=== PATIENT | female | born 1970 | race Caucasian/White ===

== ENCOUNTER 2016-11-28 06:00 | Day surgery (SDC) | payer BC, MEDICARE ==
[~2016-11-28] VITALS: Ht 165.1 cm; Wt 97.5 kg
[~2016-11-28 06:00] MED LIST: LASIX40 MG PO; NEPHRO-VITE RX1 TAB PO; NORVASC5 MG PO; PRAVACHOL40 MG PO; PRINIVIL20 MG PO; RENVELA800 MG PO; SODIUM BICARBO650 MG PO
[2016-11-28 06:45] LABS: BASOPHILS 0.5 % (0.0-2.0); EOSINOPHILS 1.3 % (0-7); HEMATOCRIT 29.3 % (36.0-48.0); HEMOGLOBIN 8.8 g/dL (12-16); IMMATURE GRANULOCYTES 0.2 % (0-5); LYMPHOCYTES 17.2 % (15-50); MCH 26.8 pg (26.0-34.0); MCV 89.3 fL (80.0-100.0); MONOCYTES 7.5 % (2-11); NEUTROPHILS 73.3 % (40-80); PLATELET COUNT 337 10x3/uL (130-400); RBC 3.28 10x6/uL (4.00-5.40); RDW 15.5 % (11.5-14.5); WBC 8.7 10x3/uL (4.8-10.8)
[2016-11-28 06:57] LABS: INR 1.12 (0.85-1.17); PROTIME 14.3 SECONDS (11.6-15.0)
[2016-11-28 07:01] LABS: CALCIUM 8.1 mg/dL (8.5-10.1); CARBON DIOXIDE 27.3 mmol/L (21.0-32.0); CREATININE - SERUM 4.4 mg/dL (0.6-1.3); POTASSIUM - SERUM 3.3 mmol/L (3.5-5.1)
[2016-11-28 08:21] VITALS: Ht 165.1 cm; Wt 97.5 kg
--- NOTE | 2016-11-28 08:58 | NUR ---
8792 JOSE MCKEON APN PAGED TO GIVE LAB RESULTS, RETURNED CALL, RESULTS GIVEN, ORDERS RECEIVED, CLEARED FOR SURGERY
[2016-11-28] MEDS ORDERED: HYDROCODON-ACE1 EAC7 PO (13:30)
--- NOTE | 2016-11-28 15:19 | NUR ---
1515 LAB HERE FOR BLOOD DRAW
--- NOTE | 2016-11-28 16:59 | OP ---
PATIENT NAME: BRODIE SINGH MEDICAL RECORD: [id number] :72 LOCATION:[facility] ADMISSION DATE: SURGEON: LINDA MILLER MD DATE OF OPERATION: 11/28/2016 PREOPERATIVE DIAGNOSIS: End-stage renal disease with dependence upon hemodialysis, now catheter dependent. POSTOPERATIVE DIAGNOSIS: End-stage renal disease with dependence upon hemodialysis, now catheter dependent. HISTORY OF PRESENT ILLNESS: She has a nonfunctioning peritoneal dialysis catheter and at present a right internal jugular tunneled dialysis catheter HemoSplit. She has had a failed access brachiocephalic AV fistula in the left arm. She has not had a successful hemodialysis access since that. She is brought to the OR today as an outpatient with plans to remove the peritoneal dialysis catheter and implant a new PTFE AV graft in her left arm. DESCRIPTION OF PROCEDURE: With the patient under general anesthesia, she was placed in supine position, prepped and draped in sterile manner. The arm was examined with ultrasound and I did not see a really good vein in the forearm for a forearm loop and went on to do an upper arm axillo-axillary loop Propaten PTFE graft. A transverse axillary incision was made and the axillary vein and axillary artery were exposed and controlled with Silastic loops. These vessels were normal in caliber. The axillary vein was only about a centimeter in diameter. The artery certainly exhibited no signs of atherosclerosis. The vessels were controlled with Silastic loops. I had planned to use a 6 mm straight Roggen Propaten PTFE graft, but we did not have one in stock. Fortunately, we did have a 4-7 taper 80 cm long standard wall thickness Propaten PTFE graft and I used that. Portion of the 4-mm end was trimmed away and the graft beveled and the artery was opened, flushed proximally and distally with heparinized saline and then the graft anastomosed to it with continuous running 6-0 Prolene. A counter incision was made just above the antecubital space and the graft was then pulled through a subcutaneous tunnel immediately beneath the skin and brought back up to the axillary wound. There, the graft was carefully shortened and beveled and anastomosed end-to-side to the axillary vein with local heparin flush as the only anticoagulant. Several times during the procedure, the graft itself was aspirated and flushed with heparinized saline. When the last anastomosis was completed and the occluding loops and clamps were released, excellent flow was immediately established in the new graft and bleeding at the suture lines was minimal and easily controlled with some fibrillar hemostatic material and dry gauze and gentle pressure. When hemostasis was adequate, the wounds were irrigated with saline and then infiltrated and irrigated with 0.25% Marcaine with epinephrine. They were closed with interrupted inverted 3-0 Vicryl and then running intracuticular 4-0 Monocryl and Dermabond glue. The incisions were dressed with Maxorb Ag, Tegaderm and Cavilon skin prep. Repeat Doppler examination confirmed good distal brachial artery pulsatile Doppler flow and radial and ulnar artery pulsatile Doppler flow at the wrist. The patient's abdomen was exposed and it had been prepped and draped at the beginning of the procedure. A transverse incision was made over the palpable subcutaneous catheter and the deeper of the 2 Dacron felt cuffs was exposed and found to be in the subcutaneous tissue, immediately anterior to the anterior rectus sheath. It was freed from the surrounding tissue and the dialysis catheter then pulled from the abdomen. Its tip was sent for culture and then dissection superficially exposed the OPERATIVE REPORT [id number] BRODIE SINGH K superficial of the 2 Dacron felt cuffs. This was just immediately beneath the skin and actually there was a fistula between the skin adjacent to the true exit site and the Dacron felt cuff. There was no purulent material per se. Cultures were taken of this area. The catheter was removed and I then excised the exit site and fistulous opening as an oblique ellipse of skin and subcutaneous tissues. The wounds were irrigated with saline and then infiltrated with Marcaine with epinephrine and then the oblique incision at the exit site wound was closed with interrupted simple 3-0 Vicryl sutures. The larger incision was closed with a few interrupted inverted 3-0 Vicryl and then running intracuticular 4-0 Monocryl and the intracuticularly closed incision was sealed with Dermabond glue. Both sites were dressed with Maxorb Ag, Tegaderm and Cavilon skin prep. The patient then awakened and taken to the recovery room. Blood loss during the procedure was trivial and was unreplaced and all sponges, instruments, and needles were accounted for. No drain was used and no surgical specimen was submitted for histopathology, but cultures of the abdominal wall exit site and of the peritoneal dialysis catheter tip were requested. PLAN: The patient will go home today and continue her home diet and all of her same medications. She is given a prescription for [place] 5/325, #30 one p.o. q.4 hours p.r.n. pain and she will return to see me in my office next week. She will continue her renal diet, etc. She can wash over the waterproof plastic dressings as desired with soap and water and otherwise leave the dressings intact and I will remove them in the office next week. I expect that the new AV graft can be used for hemodialysis first in about 2 weeks. Hopefully, it will work fine and the tunneled dialysis catheter can be removed as quickly as possible after that. TRANSINT:[id number] Voice Confirmation ID: [id number] DOCUMENT ID: [id number] LINDA MILLER MD at 1659 CC: AKSHAT VILLASEÑOR MD [id number] DICTATION DATE: 11/28/16 1344 GUEST SERVICES DIRECTOR: 11/28/16 1429 [facility] 11/28/16 [id number] [place] [address]
== END 2016-11-28 16:20 | disposition home or self-care (01) ==
LOC: D.OPS 06:00
PROVIDERS: Internal Medicine Nephrology
DX: N18.6 End stage renal disease (principal)

== ENCOUNTER 2020-04-16 19:04 | Inpatient (IN) | payer MEDICARE, BC ==
[~2020-04-16] VITALS: Ht 165.1 cm; Wt 87.5 kg
--- NOTE | ~2020-04-16 | OP ---
PATIENT NAME: BRODIE CAGE MEDICAL RECORD: [id number] :72 LOCATION:D. D.2101 ADMISSION DATE:04/17/20 SURGEON: LINDA MILLER MD DATE OF OPERATION: 04/18/2020 PREOPERATIVE DIAGNOSES: Thrombosed dialysis access and end-stage renal disease and dependence on hemodialysis. POSTOPERATIVE DIAGNOSES: Thrombosed dialysis access and end-stage renal disease and dependence on hemodialysis. OPERATION PERFORMED: Ultrasound and fluoroscopic-guided insertion of a right internal jugular HemoSplit 19 cm tunneled dialysis catheter. SURGEON: Linda Miller MD ANESTHESIA: General with LMA per DIVING JUDGE. PREOPERATIVE NOTE: Ms. Cage who yesterday underwent a percutaneous mechanical thrombolysis, angioplasty and stenting procedure of her left arm AV graft. Clotted graft yesterday before dialysis. She is returned to the OR today to implant a hemodialysis catheter. She has had a prior catheter on the right in the internal jugular vein, but we will try again hopefully, that vein is still patent. DESCRIPTION OF PROCEDURE: Under anesthesia in supine position, the patient was prepped and draped in a sterile manner. She was examined with ultrasound and I found that the right internal jugular vein was patent at least at the level of the clavicular head and fully compressible. I made a small incision there and inserted a micropuncture needle under ultrasound guidance with continuous real-time ultrasound guidance into the internal jugular vein and then advanced a microwire under fluoroscopy into the superior vena cava. I then inserted a small catheter and then performed a wire exchange and then passed serial dilators under fluoroscopy and lastly inserting a peel-away dilator. I chose a 19-cm catheter. This was placed through a small incision beneath the clavicle and a subcutaneous tunnel up to the cervical incision where it was inserted through the peel-away sheath and the sheath removed. Fluoroscopy demonstrated satisfactory placement of the catheter in the right atrium with good orientation. The catheter lumens were accessed and aspirated, free return of blood from each demonstrated. Both lumens were then flushed with saline and then heparin locked, clamped and capped. The catheter was sutured to the skin at the entry site with 2-0 Prolene and the cervical incision closed with interrupted inverted 3-0 Vicryl and Dermabond glue. It was dressed with Maxorb Ag, Tegaderm, and Cavilon skin prep. A chlorhexidine Biopatch was applied to the catheter entry site and a standard CVL adhesive plastic dressing over that. The patient was then awakened and taken to the recovery room. Blood loss during the operation was essentially none. Sponges, instruments, and needles accounted for. No surgical specimen submitted for histopathology. PLAN: The patient should have dialysis today and then be able to go home. I plan to bring her back to the hospital in the next couple of weeks for a thrombectomy open revision procedure of her left arm graft. I will plan to implant a new Artegraft basically around the old one using the present stented venous outflow tract and a new arterial anastomosis. The old PTFE graft was essentially worn out and she has a persistent stenosis or problem at the OPERATIVE REPORT [id number] BRODIE CAGE arterial anastomosis. Note, the old graft was a 4-7 taper PTFE graft and her new graft will not be a taper. TRANSINT:[id number] Voice Confirmation ID: [id number] DOCUMENT ID: [id number] cc: [facility] LINDA Nielson MD CC: Dominic GONZALEZ DIVINE DO [id number] DICTATION DATE: 04/18/20 1021 LEATHER PIECE INSPECTOR: 04/18/20 1143 DIS IN 04/18/20 [facility] [address] [place] [address]
--- NOTE | ~2020-04-16 | OP ---
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 Additionally, end-stage renal disease and dependence on renal dialysis. OPERATION PERFORMED: Percutaneous access with a fistulogram and AngioJet mechanical thrombolysis and balloon angioplasty of thrombosed AV graft and placement of a 10 mm x 5 cm Viabahn stent in the axillary vein at the proximal end of previously placed stent and balloon angioplasty of an arterial anastomotic stenosis and selective left brachial artery arteriogram. SURGEON: Linda Miller MD ANESTHESIA: General with LMA per SUPERVISOR FINISHING ROOM. PREOPERATIVE NOTE: Ms. Cage is a very nice 49-year-old white female patient from [place]. She has end-stage renal disease and is on hemodialysis with a left arm AV graft, which I implanted back in 2017. This was a tapered 4-7 mm PTFE graft placed in a loop configuration between the proximal brachial artery and proximal basilic vein. She had very little problems with this until recently. She was able to stop Plavix, which she was on following coronary artery intervention and she began to have episodes of graft thrombosis. She has now had about 5-6 declots done on as many weeks and has clotted her graft yet again. She was brought to the operating room at this time with expectation that she will need a HemoSplit catheter and a new access or major revision of the existing access. I will do another percutaneous fistulogram with declot and arteriogram to determine the anatomy and see for myself what may be the cause and determine what might be the best remedy for a problem. 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 DESCRIPTION OF PROCEDURE: Under general anesthesia in supine position, the patient was prepped and draped in sterile manner. I examined her with ultrasound and noted the long stent in the venous anastomosis and what appeared to be clips or metallic density near the arterial anastomosis. I accessed the graft twice percutaneously with placement of 7-Lebanese introducers overlapping in the region of the apex of the loop and I passed a guidewire proximally through the venous outflow and over that used the AngioJet to lyse and remove thrombus from the venous half of the graft and anastomosis. I then used an 8-mm angioplasty balloon to dilate the venous outflow tract and the venous limb of PTFE and subsequently used a 10-mm balloon for the same thing. There were proved to be about a 1 inch long very elastic stenosis of about 80% diameter reduction in the vein immediately proximal to the existing axillary vein stent. This did not respond sufficiently to balloon dilatation and it proved necessary to stent this and I did that with a 10-mm diameter x 5 cm Viabahn stent. This required the use of an 11-Lebanese introducer. The patient was systemically heparinized with 5000 units of heparin systemically of course. The graft was then studied with a contrast injection and a considerable roughening of the body of the graft was still present and this was treated by repeated applications of the angioplasty balloon held at 10 atmospheres for 60 seconds and subsequent contrast injection looked better at least at a better angiographic appearance. The arterial limb of the graft was then cleared in a similar manner. The guidewire was passed proximally across the arterial anastomosis and up into the OPERATIVE REPORT [id number] BRODIE CAGE K brachial and then axillary artery. Contrast was injected into the proximal brachial artery and a selective arteriogram performed, which revealed a stenosis at the arterial anastomosis and then good runoff into the forearm and hand without evidence of any embolism or other problems. The stenosis may be a small dissection or flap created by recent angioplasties. It did have that appearance and I noted that the arterial anastomosis itself was extremely tight around the 5-Lebanese glide catheter. I then used a 6-mm angioplasty balloon to dilate the arterial anastomosis and the brachial artery just proximal to it. There was a stenosis there or at least there was a lumen of about 4-mm, which goes along with the graft having been 4-mm PTFE graft at the arterial anastomosis. I used a larger angioplasty balloon into lyse and compact thrombus in the arterial limb. This was done with overlapping inflations and use of the AngioJet. Eventually flow was restored in the AV graft and the subsequent angiographic appearance was quite satisfying. The introducer sheaths were removed and hemostasis obtained with a period of direct pressure and 4-0 Prolene [id number] sutures. The sites were dressed with Avitene Ultrafoam, Tegaderm, and Cavilon skin prep. The patient was awakened and taken to the recovery room and there noted to have excellent audible bruit and thrill palpable. Note, she did have a color flow duplex Doppler repeated in the operating room at the completion of this procedure and I noted a continuous periodic pulsatile flow throughout the graft. Blood loss during the operation was about 25 cc, unreplaced. Sponges, instruments, and needles were accounted for. No drain was used and no surgical specimen was submitted for histopathology. PLAN: Obviously, the patient will need to have dialysis as soon as possible today. If her graft thrombosis or if she is not able to get a good hemodialysis treatment today, then I will plan to return her to the operating room tomorrow for implantation of a HemoSplit and she could then have dialysis and return subsequently for revision of her access. I believe though that she will be able to have dialysis today and then should be able to go home. I plan for her to stay on Plavix 75 mg daily and Eliquis 2.5 mg b.i.d. receiving the first dose of Eliquis in the recovery room now. When her access thrombosis next, please refer her to OPC for placement of a tunneled dialysis catheter and not for a repeat angiogram and declot procedure. I would like to have her referred back to me then at that point, so that I can perform a revision or reoperation. I think I would try to implant a new Artegraft loop in the left arm using the same venous outflow, but moving the arterial anastomosis proximally on the artery and having a larger lumen for the arterial anastomosis and I also would probably go ahead and stent the area of stenosis in the brachial artery at the old PTFE graft anastomotic site. This could be extended from below as well as above. TRANSINT:[id number] Voice Confirmation ID: [id number] DOCUMENT ID: [id number] cc: [facility] OPERATIVE REPORT [id number] BRODIE CAGE JAMES MD CC: Dominic GONZALEZ DIVINE DO [id number] DICTATION DATE: 04/17/20 1137 ARTIST'S MANAGER: 04/17/20 1358 DIS IN 04/18/20 [facility] [address] [place] [address]
--- NOTE | 2020-04-16 19:00 | NUR ---
PT DIRECT ADMIT FROM RENAL CLINIC, PT IN ROOM, AAO X 3, RESP EVEN AND UNLABORED. NO DISTRESS NOTED. CL IN REACH, SR UP X 2.
[~2020-04-16 19:04] MED LIST changes: +HYDROCODON-ACE1 EAC7 PO
[2020-04-16] MEDS ORDERED: BAYER CHEWABLE81 MG PO (19:41)
[2020-04-16] MEDS ORDERED: PLAVIX75 MG PO (19:41)
[2020-04-16] MEDS ORDERED: SENSIPAR30 MG PO (19:45)
[2020-04-16 20:32] VITALS: BP 177/93
[2020-04-16 22:09] LABS: BASOPHILS 0.3 % (0-2); EOSINOPHILS 1.2 % (0-7); HEMOGLOBIN 10.5 g/dL (12-16); IMMATURE GRANULOCYTES 0.1 % (0-5); LYMPHOCYTES 17.3 % (15-50); MCH 31.3 pg (26.0-34.0); MCHC 31.8 g/dL (31.0-37.0); MCV 98.2 fL (80.0-100.0); MEAN PLATELET VOLUME 10.5 fL (7.4-10.4); MONOCYTES 10.4 % (2-11); NEUTROPHILS 70.7 % (40-80); RBC 3.36 10x6/uL (4.00-5.40); RDW 14.1 % (11.5-14.5); WBC 7.6 10x3/uL (4.8-10.8)
[2020-04-16 22:10] LABS: PLATELET COUNT 171 10x3/uL (130-400)
[2020-04-16 22:17] LABS: ANION GAP 14.3 mmol/L (8-16); CALCIUM 8.7 mg/dL (8.5-10.1); CARBON DIOXIDE 26.4 mmol/L (21.0-32.0); CREATININE - SERUM 8.9 mg/dL (0.6-1.3); POTASSIUM - SERUM 5.7 mmol/L (3.5-5.1)
[2020-04-16 22:18] LABS: PROTIME 13.2 SECONDS (11.6-15.0)
[2020-04-17] VITALS: BP 148/70
[2020-04-17 05:17] VITALS: BP 156/85
--- NOTE | 2020-04-17 07:00 | NUR ---
RECEIVED REPORT. ASSUMED CARE OF PATIENT. PATIENT RESTING IN BED WITH EYES OPEN. NO DISTRESS. DENIES NEEDS. CALL LIGHT WITHIN REACH. AWAITING SURGERY.
--- NOTE | 2020-04-17 07:24 | NUR ---
RECEIVED CALL TO PREOP PATIENT, PATIENT HAS NO ORDERS, NO ANSWER IN SURGERY OR RECOVERY.
--- NOTE | 2020-04-17 07:27 | NUR ---
STICKER HAND NOTIFIED OF NO ANSWER IN OR OR RECOVERY TO OBTAIN PREOP ORDERS. INSTRUCTED TO KEEP CALLING, NO ADDITIONAL ORDERS/INSIGHT RECEIVED.
--- NOTE | 2020-04-17 07:59 | NUR ---
SPOKE WITH NANCY IN SURGERY TO NOTIFY OF NO ORDERS FOR PREOP MEDS TO ADMINISTER. NANCY TO FIND ANESTHESIA AND CALL BACK WITH ORDERS
--- NOTE | 2020-04-17 08:12 | NUR ---
PREOP MEDS ADMINISTERED AND PATIENT AWAITING SURGERY TEAM.
[2020-04-17 09:49] VITALS: BP 153/74
--- NOTE | 2020-04-17 11:58 | NUR ---
PATIENT RETURNED TO UNIT S/P FISTULOGRAM. PATIENT ALERT/ORIENTED. BP 137/74. NO DISTRESS. DENIES PAIN. WAITING FOR DIALYSIS AT THIS TIME. CALL LIGHT WITHIN REACH.
--- NOTE | 2020-04-17 13:00 | NUR ---
SPOKE WITH JOSE MCKEON, RENAL ESCAPEMENT MAKER AND RECEIVED OKAY TO DISCHARGE FROM RENAL STANDPOINT IF PATIENT TOLERATES DIALYSIS TODAY.
--- NOTE | 2020-04-17 14:52 | NUR ---
RESTING WELL. FRESH ICEWATER PROVIDED. CALL LIGHT WITHIN REACH. NO DISTRESS.
--- NOTE | 2020-04-17 15:01 | NUR ---
HOME MEDICATIONS RESTARTED PER NURSING MESSAGE FROM .
[2020-04-17 18:45] VITALS: BP 132/68
--- NOTE | 2020-04-17 19:18 | NUR ---
RECEIVED REPORT, WILL ASSUME CARE OF PT, DENIES ANY NEEDS AT THIS TIME, BED IS LOW, SRX2, CALL LIGHT IN REACH, WILL CONTINUE PLAN OF CARE
[2020-04-17 20:00] VITALS: BP 133/61
[2020-04-17 21:26] LABS: BASOPHILS 0.3 % (0-2); EOSINOPHILS 0.9 % (0-7); HEMATOCRIT 27.4 % (36.0-48.0); HEMOGLOBIN 8.5 g/dL (12-16); IMMATURE GRANULOCYTES 0.1 % (0-5); LYMPHOCYTES 12.8 % (15-50); MCH 30.7 pg (26.0-34.0); MCV 98.9 fL (80.0-100.0); MEAN PLATELET VOLUME 10.5 fL (7.4-10.4); NEUTROPHILS 77.9 % (40-80); PLATELET COUNT 178 10x3/uL (130-400); RBC 2.77 10x6/uL (4.00-5.40); WBC 7.9 10x3/uL (4.8-10.8)
[2020-04-17 21:36] LABS: ANION GAP 16.4 mmol/L (8-16); CALCIUM 8.1 mg/dL (8.5-10.1); CARBON DIOXIDE 27.6 mmol/L (21.0-32.0); CREATININE - SERUM 10.3 mg/dL (0.6-1.3)
[2020-04-18] VITALS: BP 133/61
--- NOTE | 2020-04-18 01:47 | NUR ---
I have reviewed this patient and I concur with the Shift Assessment completed by the Licensed Practical Nurse today this shift.
[2020-04-18 03:52] LABS: ANION GAP 16.6 mmol/L (8-16); CALCIUM 8.3 mg/dL (8.5-10.1); CARBON DIOXIDE 27.1 mmol/L (21.0-32.0); CREATININE - SERUM 10.6 mg/dL (0.6-1.3); POTASSIUM - SERUM 4.7 mmol/L (3.5-5.1)
[2020-04-18 04:00] VITALS: BP 159/82
--- NOTE | 2020-04-18 05:33 | NUR ---
CALL LAB RESULTS TO
[2020-04-18 05:52] VITALS: BP 133/61; Ht 165.1 cm; Wt 87.5 kg
--- NOTE | 2020-04-18 07:00 | NUR ---
RECEIVED REPORT. ASSUMED CARE OF PATIENT. RESTING IN BED WITH EYES OPEN. PATIENT IS AWAITING SURGERY THIS AM. NO DISTRESS. CALL LIGHT WITHIN REACH.
--- NOTE | 2020-04-18 08:55 | NUR ---
PATIENT LEFT FOR OR VIA BED AT THIS TIME FOR HEMOSPLIT PLACEMENT. NO DISTRESS UPON LEAVING UNIT.
--- NOTE | 2020-04-18 10:26 | NUR ---
1025 DR MILLER AT BEDSIDE. PLACING STITCH IN HEMASPLIT SITE. SITE REDRESSED BY OR TECH.
--- NOTE | 2020-04-18 10:37 | NUR ---
REPORT RECEIVED FROM RECOVERY. PATIENT BACK TO UNIT SOON WITH RIGHT CHEST HEMOSPLIT PLACEMENT.
--- NOTE | 2020-04-18 10:59 | NUR ---
RECEIVED BACK FROM SURGERY, ALERT/ORIENTED. BP 126/64, 77, 18, RA 100%. PATIENT IS STILL NPO UNTIL AFTER DIALYSIS TO ENSURE HEMOSPLIT IS PATENT AND SHE DOES NOT NEED TO GO BACK TO THE OR. LAB AT BEDSIDE NOW.
[2020-04-18 11:09] LABS: BASOPHILS 0.3 % (0-2); EOSINOPHILS 0.9 % (0-7); HEMATOCRIT 27.7 % (36.0-48.0); HEMOGLOBIN 8.7 g/dL (12-16); IMMATURE GRANULOCYTES 0.2 % (0-5); LYMPHOCYTES 17.1 % (15-50); MCH 30.7 pg (26.0-34.0); MCHC 31.4 g/dL (31.0-37.0); MCV 97.9 fL (80.0-100.0); MEAN PLATELET VOLUME 10.3 fL (7.4-10.4); MONOCYTES 7.2 % (2-11); NEUTROPHILS 74.3 % (40-80); PLATELET COUNT 171 10x3/uL (130-400); RBC 2.83 10x6/uL (4.00-5.40); WBC 6.6 10x3/uL (4.8-10.8)
[2020-04-18 11:17] LABS: ANION GAP 19.8 mmol/L (8-16); CALCIUM 8.5 mg/dL (8.5-10.1); CARBON DIOXIDE 25.2 mmol/L (21.0-32.0); CREATININE - SERUM 11.3 mg/dL (0.6-1.3)
--- NOTE | 2020-04-18 11:53 | NUR ---
CONTINUE NPO STATUS WHILE AWAITING DIALYSIS. NO DISTRESS.
--- NOTE | 2020-04-18 13:31 | NUR ---
PATIENT IS IN DIALYIS AND HEMOSPLIT IS WORKING GREAT PER DIALYSIS NURSE OLU.
--- NOTE | 2020-04-18 15:30 | NUR ---
22 GAUGE IV REMOVED FROM RIGHT FOREARM. CATHETER TIP INTACT. NO BLEEDING FROM SITE. 2X2 GAUZE APPLIED AND SECURED WITH BANDAID. TOELRATED IV REMOVAL WELL. PATIENT IS BEING DISCHARGED TO HOME.
--- NOTE | 2020-04-18 15:40 | NUR ---
DISCHARGE INSTRUCTIONS PROVIDED. PATIENT VERBALZIED UNDERSTANDING OF ALL INSTRUCTIONS PROVIDED. NO DISTRESS.
--- NOTE | 2020-04-18 16:11 | NUR ---
PATIENT LEFT UNIT VIA WHEELCHAIR WITH ALL PERSONAL BELONGINGS. PATIENT DISCHARGED TO HOME IN STABLE CONDITION WITH HER DAUGHTER. NO DISTRESS UPON LEAVING UNIT.
--- NOTE | 2020-04-18 16:54 | MORECARE ---
CASE MANAGEMENT DISCHARGE SUMMARY PATIENT: BRODIE SINGH UNIT: [id number] ADM DATE: 04/17/20 AGE: 49 : 72 SEX: F ROOM/BED: D.2102 AUTHOR: BRYANT HERNÁNDEZ PHYSICIAN: REFERRING PHYSICIAN: ANTHONY ESPARZA DO DATE OF SERVICE: 04/18/20 Discharge Plan Patient Name: BRODIE SINGH Facility: [facility]:[place] : 1970 Planned Disposition: Anticipated Discharge Date: Discharge Date: 04/18/2020 Expected LOS: Initial Reviewer: [email or web address] Initial Review Date: 04/16/2020 Generated: 04/18/20 5:54 pm Patient Name: BRODIE SINGH Page [id number] at 1654 All edits/amendments must be made on the electronic document DICTATION DATE: 04/18/201653 POWER PLANT MECHANIC: HEENA 04/18/201653 RPT#: [id number] DC DATE:04/18/20 STATUS: DIS IN [facility] [address] [place] [address] END OF REPORT
--- NOTE | 2020-04-18 17:13 | MORECARE ---
CASE MANAGEMENT DISCHARGE SUMMARY PATIENT: BRODIE SINGH UNIT: [id number] ADM DATE: 04/17/20 AGE: 49 : 72 SEX: F ROOM/BED: D.6447 AUTHOR: BRYANT HERNÁNDEZ PHYSICIAN: REFERRING PHYSICIAN: ANTHONY ESPARZA DO DATE OF SERVICE: 04/18/20 Discharge Plan Patient Name: BRODIE SINGH Facility: [facility]:[place] : 1970 Planned Disposition: Anticipated Discharge Date: Discharge Date: 04/18/2020 Expected LOS: Initial Reviewer: [email or web address] Initial Review Date: 04/16/2020 Generated: 04/18/20 6:12 pm Comments DCP- Discharge Planning Updated by [email or web address]: Haydee Mai on 04/18/20 4:[address] Patient Name: BRODIE SINGH Admission Status: Elective Accout number: [id number] Admission Date: 04-17-2020 : 1970 Admission Diagnosis: Attending: PALMA Current LOS: 1 Anticipated DC Date: Planned Disposition: Primary Insurance: MEDICARE A & B Discharge Planning Comments: CM met with patient to complete initial dc planning assessment. CM educated patient on the CM role and verbal consent given by patient to complete assessment. Patient lives at home with family. Patient is independent. At discharge patient plans to return home and feels this is a safe discharge. CM discussed availability of home health, rehab services, and medical equipment. Patient will have family to transport home. Patient denied known discharge needs at this time. CM will continue to follow and will assist as needed with dc plans/needs. HUMPHRIES signed 04/17/20 @ 1800 Office Automation Technician: Haydee Mai Coverage Notice Reviewer: [email or web address] - Haydee Mai Notice Issued Date-Time: 04/17/2020 18:00 Notice Type: Medicare Outpatient Observation Notice Notice Delivered To: Patient Relationship to Patient: Self Experimental Worker Name: Delivery Method: HAND - Hand Delivered Britney Days: Prior Verbal Notification: Recipient Understood Notice: Yes Recipient Signature: Yes Med Rec Note Co-signed by Attending: Coverage Notice Comment: Last DP export: 04/18/20 3:54 p Patient Name: BRODIE SINGH Page [phone] at 1713 All edits/amendments must be made on the electronic document DICTATION DATE: 04/18/201712 DIGITAL ART DIRECTOR: HEENA 04/18/201712 RPT#: [id number] DC DATE:04/18/20 STATUS: DIS IN [facility] [address] [place] [address] END OF REPORT
--- NOTE | 2020-04-18 17:20 | MORECARE ---
CASE MANAGEMENT DISCHARGE SUMMARY PATIENT: BRODIE SINGH UNIT: [id number] ADM DATE: 04/17/20 AGE: 49 : 72 SEX: F ROOM/BED: D.3091 AUTHOR: BETTY,DOC PHYSICIAN: REFERRING PHYSICIAN: ANTHONY ESPARZA DO DATE OF SERVICE: 04/18/20 Discharge Plan Patient Name: BRODIE SINGH Facility: [facility]:[place] : 1970 Planned Disposition: Anticipated Discharge Date: Discharge Date: 04/18/2020 Expected LOS: Initial Reviewer: [email or web address] Initial Review Date: 04/16/2020 Generated: 04/18/20 6:20 pm Comments DCP- Discharge Planning Updated by [email or web address]: Haydee Mai on 04/18/20 4:[address] LATE ENTRY 04/17/20 Patient Name: BRODIE SINGH Admission Status: Elective Accout number: [id number] Admission Date: 04-17-2020 : 1970 Admission Diagnosis: Attending: PALMA Current LOS: 1 Anticipated DC Date: Planned Disposition: Primary Insurance: MEDICARE A & B Discharge Planning Comments: CM met with patient to complete initial dc planning assessment. CM educated patient on the CM role and verbal consent given by patient to complete assessment. Patient lives at home with family. Patient is independent. At discharge patient plans to return home and feels this is a safe discharge. CM discussed availability of home health, rehab services, and medical equipment. Patient will have family to transport home. Patient denied known discharge needs at this time. CM will continue to follow and will assist as needed with dc plans/needs. HUMPHRIES signed 04/17/20 @ 1800 Ecologist Technician: Haydee Mai DCPIA - Discharge Planning Initial Assessment Updated by [email or web address]: Haydee Mai on 04/18/20 5:13 pm * Is the patient Alert and Oriented? Yes * How many steps to enter\exit or inside your home? * PCP KASI * Preadmission Environment Home with Family * ADLs Independent * Equipment None * List name and contact numbers for known caregivers / representatives who currently or will assist patient after discharge: ELIZABETH KATZ - MOTHER- [phone] * Verbal permission to speak to the caregivers and representatives has been obtained from the patient. N/A * Community resources currently utilized Other * Please name any agencies selected above. HD - [facility] * Additional services required to return to the preadmission environment? No * Can the patient safely return to the preadmission environment? Yes * Has this patient been hospitalized within the prior 30 days at any hospital? No Coverage Notice Reviewer: [email or web address] Leonard Mai Notice Issued Date-Time: 04/17/2020 18:00 Notice Type: Medicare Outpatient Observation Notice Notice Delivered To: Patient Relationship to Patient: Self Power Plant Technician Name: Delivery Method: HAND - Hand Delivered Britney Days: Prior Verbal Notification: Recipient Understood Notice: Yes Recipient Signature: Yes Med Rec Note Co-signed by Attending: Coverage Notice Comment: Last DP export: 04/18/20 4:13 p Patient Name: BRODIE SINGH Page 22517 at 1720 All edits/amendments must be made on the electronic document DICTATION DATE: 04/18/201719 ICT DEVELOPMENT MANAGER: HEENA 04/18/201719 RPT#: [id number] DC DATE:04/18/20 STATUS: DIS IN [facility] [address] [place] [address] END OF REPORT
== END 2020-04-18 16:14 | disposition home or self-care (01) | DRG 252 ==
LOC: D.M2 19:04 → OBSVTIME 19:11 → D.M2 04-17 20:06
PROVIDERS: Surgery; ADMIT Internal Medicine; ATTEND Internal Medicine
PROC: 05783DZ Dilation of Left Axillary Vein with Intraluminal Device, Percutaneous Approach (ICD-10-PCS; 2020-04-17)
PROC: 05WY3KZ Revision of Nonautologous Tissue Substitute in Upper Vein, Percutaneous Approach (ICD-10-PCS; principal; 2020-04-17 08:00)
PROC: 05HM33Z Insertion of Infusion Device into Right Internal Jugular Vein, Percutaneous Approach (ICD-10-PCS; 2020-04-18)
PROC: B5131ZA Fluoroscopy of Right Jugular Veins using Low Osmolar Contrast, Guidance (ICD-10-PCS; 2020-04-18)
DX: T82.868A Thrombosis due to vascular prosthetic devices, implants and grafts, initial encounter (principal); N18.6 End stage renal disease; I12.0 Hypertensive chronic kidney disease with stage 5 chronic kidney disease or end stage renal disease; Y83.9 Surgical procedure, unspecified as the cause of abnormal reaction of the patient, or of later complication, without mention of misadventure at the time of the procedure; I25.10 Atherosclerotic heart disease of native coronary artery without angina pectoris; E87.5 Hyperkalemia; D63.1 Anemia in chronic kidney disease

== ENCOUNTER 2020-05-25 06:20 | Day surgery (SDC) | payer MEDICARE, BC ==
[~2020-05-25] VITALS: Ht 165.1 cm; Wt 86.2 kg
--- NOTE | ~2020-05-25 | OP ---
PATIENT NAME: BRODIE CAGE MEDICAL RECORD: [id number] :[birth year] LOCATION:[facility] ADMISSION DATE: SURGEON: LINDA MILLER MD DATE OF OPERATION: 05/25/2020 REFERRING PHYSICIAN: Dr. Gonzalez. DIAGNOSES: End-stage renal disease and dependence on hemodialysis, and thrombosed right upper extremity arteriovenous graft. OPERATION PERFORMED: Fistulogram with mechanical thrombolysis and angioplasty of an 80% in-stent axillary vein stenosis with 0 residual and implantation of a new Acuseal loop jump graft around the previous PTFE AV graft with end-to-end anastomosis to the stented PTFE graft in the axilla and end-to-end to the PTFE arterial limb as well. SURGEON: Linda Miller MD ANESTHESIA: General per ANIMAL HUSBANDRY TEACHER. Additionally, the operation included selective left brachial artery arteriogram. PREOPERATIVE NOTE: Ms. Cage is a ravinder 49-year-old white female patient from [place]. She has end-stage renal disease and is on chronic hemodialysis. She has most recently been dialyzing with a left upper extremity PTFE loop graft between the axillary vein and a proximal brachial artery. She has had multiple overlapping stents placed in the venous outflow and in the axillary vein up to almost to the junction with the cephalic arch. Her graft is thrombosed and she is brought to the OR to perform an attempted salvage. DESCRIPTION OF PROCEDURE: With the patient underwent general endotracheal anesthesia, prepped and draped in sterile manner. The right arm was abducted, a longitudinal incision was made in the upper arm to expose the arterial and venous limbs of the loop graft. An introducer sheath was inserted through the graft into the venous outflow and contrast injections demonstrated an 80% stenosis in-stent in the axillary vein. This was successfully treated by balloon angioplasty. Thrombus in this portion of the vein was lysed and aspirated with AngioJet. The patient was systemically heparinized. The arterial limb was then cannulated and a guidewire and catheter passed into the proximal brachial artery and up into the distal axillary artery. Contrast injection was then done. This demonstrated no evidence of embolus or clot in the brachial artery or radial or ulnar arteries to the wrist. The arterial anastomosis was not stenotic nor was there any JA stenosis. I then chose a new Acuseal graft and placed it in a very superficial subcutaneous tunnel outside the existing tunneled PTFE graft. The venous end was anastomosed end-to-end to the stented PTFE with running 6-0 Prolene and the graft and the stent flushed thoroughly with heparinized saline. The arterial end was handled in a similar manner with an end-to-end anastomosis, Acuseal to PTFE with 6-0 Prolene. The suture lines were treated with BioGlue and with release of the occluding clamps, excellent flow developed in the new AV graft and the suture lines were all hemostatic. The wound was irrigated with Ancef and gentamicin solution. A single counter incision had been made for implanting the loop. This was infiltrated with 0.25% Marcaine without epinephrine and closed with interrupted inverted 3-0 Vicryl and Dermabond glue. The primary incision was irrigated with antibiotic solution and OPERATIVE REPORT [id number] BRODIE CAGE then infiltrated with 0.25% Marcaine and then closed with interrupted inverted 3-0 Vicryl and then running intracuticular 4-0 Stratafix and Dermabond glue. Both incisions were then dressed with Maxorb Ag, Tegaderm, and Cavilon skin prep. The patient was then awakened from her anesthetic and taken to recovery room. PLAN: I believe the patient can be discharged to home and have dialysis tomorrow in [place] following Acuseal protocol for 2 weeks. She is to come back to [facility] to see me in my office next week. She is to resume her usual doses of Plavix and aspirin tomorrow and also was given a prescription for 25/325 [place] tablets to take 1 p.o. q.4 hours p.r.n. pain. There was no blood loss of any consequence during the procedure. Sponges, instruments, and needles were accounted for. No drain was used and no surgical specimen submitted for histopathology. TRANSINT:[id number] Voice Confirmation ID: [id number] DOCUMENT ID: [id number] LINDA MILLER MD CC: URIEL GONZALEZ [id number] DICTATION DATE: 07/02/20 1314 PARADI OPERATOR: 07/02/20 1449 [facility] 05/25/20 [facility] [address] [place] [address]
[~2020-05-25 06:20] MED LIST changes: +BAYER CHEWABLE81 MG PO; +PLAVIX75 MG PO; +SENSIPAR30 MG PO
[2020-05-25 06:37] LABS: BASOPHILS 0.5 % (0-2); EOSINOPHILS 1.7 % (0-7); HEMATOCRIT 32.6 % (36.0-48.0); HEMOGLOBIN 9.7 g/dL (12-16); IMMATURE GRANULOCYTES 0.4 % (0-5); LYMPHOCYTES 13.4 % (15-50); MCH 30.2 pg (26.0-34.0); MCHC 29.8 g/dL (31.0-37.0); MCV 101.6 fL (80.0-100.0); MEAN PLATELET VOLUME 9.8 fL (7.4-10.4); MONOCYTES 8.1 % (2-11); NEUTROPHILS 75.9 % (40-80); RBC 3.21 10x6/uL (4.00-5.40); RDW 16.2 % (11.5-14.5); WBC 7.7 10x3/uL (4.8-10.8)
[2020-05-25 06:39] LABS: PLATELET COUNT 348 10x3/uL (130-400)
[2020-05-25 06:58] LABS: ANION GAP 13.1 mmol/L (8-16); CALCIUM 9.1 mg/dL (8.5-10.1); CARBON DIOXIDE 30.1 mmol/L (21.0-32.0); CREATININE - SERUM 5.2 mg/dL (0.6-1.3); POTASSIUM - SERUM 4.2 mmol/L (3.5-5.1)
[2020-05-25 07:01] LABS: INR 0.97 (0.85-1.17); PROTIME 12.8 SECONDS (11.6-15.0)
[2020-05-25] MEDS ORDERED: FOLATE0.4 MG PO (08:57)
[2020-05-25 09:03] VITALS: Ht 165.1 cm; Wt 86.2 kg
[2020-05-25 09:10] LABS: HCG SERUM NEGATIVE (NEGATIVE)
[2020-05-25] MEDS ORDERED: HYDROCODON-ACE1 EAC7 PO (15:57)
--- NOTE | 2020-05-25 17:10 | NUR ---
1710 REQUESTS SOMETHING FOR PAIN FOR 06/04 TRAMADOL X1 PO GIVEN ICE PACK TO LEFT ARM PROVIDED.
== END 2020-05-25 17:50 | disposition home or self-care (01) ==
LOC: D.OPS 06:20
PROVIDERS: Anesthesiology; ATTEND Internal Medicine Nephrology
DX: N18.6 End stage renal disease (principal); Z99.2 Dependence on renal dialysis; T82.868A Thrombosis due to vascular prosthetic devices, implants and grafts, initial encounter

== ENCOUNTER 2020-06-18 07:13 | Inpatient (IN) | payer MEDICARE, BC ==
[~2020-06-18] VITALS: Ht 165.1 cm; Wt 86.6 kg
--- NOTE | ~2020-06-18 | HEMODYNAMI ---
PATIENT:BRODIE SINGH MEDICAL RECORD: [id number] : 72 LOCATION:[facility] D.2107 ADMISSION DATE: 06/18/20 Generatedon:06/23/202014:57 Patient name: BRODIE SINGH Patient #: [id number] SSN: D OB: 1970 Date of study: 06/23/2020 Page: Of Hemodynamic Procedure Report Patient Data Patient Demographics Procedure consent was obtained First Name: BRODIE Gender: Female Last Name: FRANCISCO : 1970 Middle Initial: YENNI Age: 49 year(s) Patient #: [id number] Race: Unknown Additional ID: [id number] Contact details [address]: [address] [place] [address] State: [place] City: [place] Zip code: [address] Past Medical History Allergies: No known allergies Admission Admission Data Admission Date: 06/18/2020 Admission Time: 14:43 Room #: 2107 Procedure Procedure Types Cath Procedure Peripheral Cath Diagnostic Procedure PICC PICC Line Placement Procedure Description Procedure Date Procedure Date: 06/23/2020 Procedure Start Time: 14:31 Procedure Staff Name Function Markos Nguyen MD Performing Physician JANET RUGGIERO RT Monitor Paul Sierra RT Scrub Luisa Scott RN Nurse John GOLDSTEIN RN Nurse Procedure Data Cath Procedure Fluoroscopy Diagnostic fluoroscopy Total fluoroscopy Time: 1 time: 1 min min Diagnostic fluoroscopy Total fluoroscopy dose: 7 dose: 7 mGy mGy Procedure Medications Medication Administration Route Dosage Fentanyl I.V. 50 mcg Fentanyl I.V. 50 mcg Hemodynamics Rest Heart Rate: 74 (bpm) Snapshots Pre Cath Intra NCS Post Cath Vital Signs Time Heart Resp SPO2 etCO2 NIBP (mmHg) Rhythm Pain Sedation Rate (ipm) (%) (mmHg) Status Level (bpm) 14:26:20 72 14 98 0 132/74(102) NSR 0 (11) 10(A) , No pain 14:30:36 74 26 97 0 127/69(99) NSR 0 (11) 10(A) , No pain 14:34:52 71 24 96 0 127/67(94) NSR 0 (11) 10(A) , No pain 14:39:06 67 29 97 0 128/66(102) NSR 0 (11) 10(A) , No pain 14:43:20 68 23 92 0 120/68(87) NSR 0 (11) 10(A) , No pain 14:47:32 69 25 94 0 118/65(94) NSR 0 (11) 10(A) , No pain 14:51:42 68 20 94 0 124/66(95) NSR 0 (11) 10(A) , No pain 14:55:56 70 14 96 0 123/69(89) NSR 0 (11) 10(A) , No pain Medications Time Medication Route Dose Verified Delivered Reason Notes Effectiven ess by by 14:35:26 Fentanyl I.V. 50 Markos Luisa Per mcg Patrick Scott RN physician 14:52:03 Fentanyl I.V. 50 Markos Moran Per mcg Patrick Scott RN physician MD Procedure Log Time Note 14:04:34 Use device set IR Diagnostic 14:04:35 Bag Decanter (2002S) opened to sterile field. 14:04:36 Sterile Angiographic Pack opened to sterile field. 14:04:36 Tegaderm 4 x 4 (1626W) opened to sterile field. 14:04:44 MICROPUNCTURE 4FR Cook ([id number]) opened to sterile field. 14:04:54 Paul Sierra RT (R) (CV) sent for patient. Start room use. 14:04:56 Time tracking: Regular hours (M-F 7:00 - 5:00) 14:05:03 Patient received from Med II to IR Alert and oriented. Tansferred to table in Supine position. 14:05:06 Signed procedure consent form obtained from patient. 14:05:07 Warm blankets applied, and flor hugger turned on for patient comfort. 14:05:08 Correct patient and procedure confirmed by team. 14:05:08 ECG and BP/O2 sat monitors applied to patient. 14:05:09 - 14:05:10 - 14:05:14 H&P Date Dictated: 06/23/2020 Within 30 days and on chart.. 14:05:16 Pre-procedure instructions explained to patient. 14:05:17 Pre-op teaching completed and patient verbalized understanding. 14:05:26 Patient allergic to No known allergies 14::29 Is the patient allergic to Iodine/contrast media? No. 14:06:19 Is patient on blood thinner?No 14:06:26 Patient diabetic? No. 14:06:29 ----Pre-sedation anethsthesia assessment.---- 14:06:33 Previous problem with sedation/anesthesia? No ? 14:06:35 Snore? Yes 14:06:36 Sleep apnea? No 14:06:39 Deviated septum? No 14:06:41 Opens mouth fully? Yes 14:06:42 Sticks out tongue? Yes 14:06:48 Airway obstruction? Yes heart disease 14:06:59 Dentures? No ? 14:07:00 - 14:07:22 Left Chest was prepped with chlora-prep and draped in sterile fashion. 14:07:23 Alarms reviewed by Tanika Rodriguez 14:07:23 Sharps counted by scrub and verified by [email or web address] 14:16:27 IV patent on arrival in right hand with 0.9% NaCl at KVO. 14:25:14 Vital chart was started 14:26:13 Baseline sample Acquired. 14:28:16 Physician arrived 14:28:20 --------ALL STOP TIME OUT------ 14:28:21 Final Timeout: patient, procedure, and site verified with staff and physician. All members of the team are in agreement. 14:28:25 Left chest site verified by team. 14:28:29 Fire Safety Assessment: A--An alcohol-based skin anteseptic being used preoperatively., C--Open oxygen or nitrous oxide is being used. 14:30:04 Full Disclosure recording started 14:31:04 Procedure started. 14:31:29 Baseline sample Acquired. 14:33:06 BENTSON 145cm wire ([id number]) opened to sterile field. 14:35:26 Fentanyl 50 mcg I.V. was administered by Luisa Scott RN; Per physician; Verbal order read back and verified. 14:37:07 Venous access obtained using ultrasound guidance. 14:47:37 4-0 Vicryl J426H opened to sterile field. 14:47:38 2-0 Silk 685H opened to sterile field. 14:52:03 Fentanyl 50 mcg I.V. was administered by Luisa Scott RN; Per physician; Verbal order read back and verified. 14:52:37 Dermabond Pen opened to sterile field. 14:55:10 Procedure ended.(Physican Out) 14:55:13 Fluoroscopy time 01.00 minutes. 14:55:15 Fluoroscopy dose: 7 mGy 14:55:15 Flurop Dose total: 7 14:55:27 Sharps counted by scrub and verified by R.N. 14:55:37 Post-op/insertion site Left Subclavian vein dressed using a Dermabond, 4x4 and tegaderm. 14:55:54 Post procedure instruction explained to patient.Patient verbalizes understanding. 14:55:55 Procedure and supply charges have been captured, reviewed, submitted an d are correct. 14:57:20 Vital chart was stopped 14:57:22 See physician's report for complete and final results. 14:57:25 Patient transfered to [facility] with Bed. Device Usage Item Name Manufacture Quantity Catalog Hospital Part Current Minima l Lot# / Number Charge Number Stock Stock Serial# Code Bag Decanter Microtek 1 [id number] 5 () [employer] Sterile Cardinal [address] [id number] 5 Angiographic Health Pack Tegaderm 4 x 3M 1 1626W 397354 774095 610631 5 4 (1626W) MICROPUNCTURE [facility] 1 [id number] 735544 082654 5 4FR Cook ([id number]) BENTSON 145cm [facility] 2 [id number] 121156 964397 5 wire ([id number]) 4-0 Vicryl Ethicon 1 J426H 045170 319978 185789 5 J426H 2-0 Silk 685H Ethicon 1 685H 253556 13537 963387 5 Dermabond Pen Ethicon 1 DNX6 710459 883638 5 Signature Audit [place] Stage Time Signature Unsigned Intra-Procedure 06/23/2020 JANET RUGGIERO RT 2:57:42 PM (R) [facility] [address] [place] [address]
[~2020-06-18 07:13] MED LIST changes: +FOLATE0.4 MG PO
[2020-06-18 07:36] LABS: BASOPHILS 0.1 % (0-2); EOSINOPHILS 0.7 % (0-7); HEMATOCRIT 41.4 % (36.0-48.0); HEMOGLOBIN 12.4 g/dL (12-16); IMMATURE GRANULOCYTES 0.1 % (0-5); LYMPHOCYTES 13.4 % (15-50); MCH 29.3 pg (26.0-34.0); MCV 97.9 fL (80.0-100.0); MEAN PLATELET VOLUME 9.4 fL (7.4-10.4); MONOCYTES 7.9 % (2-11); NEUTROPHILS 77.8 % (40-80); RBC 4.23 10x6/uL (4.00-5.40); RDW 16.3 % (11.5-14.5); WBC 7.5 10x3/uL (4.8-10.8)
[2020-06-18 07:40] LABS: PLATELET COUNT 255 10x3/uL (130-400)
[2020-06-18 07:47] LABS: INR 1.02 (0.85-1.17); PROTIME 13.3 SECONDS (11.6-15.0)
[2020-06-18 07:51] LABS: ANION GAP 15.7 mmol/L (8-16); CALCIUM 8.9 mg/dL (8.5-10.1); CARBON DIOXIDE 26.9 mmol/L (21.0-32.0); CREATININE - SERUM 10.4 mg/dL (0.6-1.3); POTASSIUM - SERUM 4.6 mmol/L (3.5-5.1)
[2020-06-18 08:08] LABS: HCG SERUM NEGATIVE (NEGATIVE)
[2020-06-18] MEDS ORDERED: COLACE100 MG PO (09:04)
[2020-06-18 09:05] VITALS: BMI 33.0
[2020-06-18 15:13] VITALS: BP 140/80
--- NOTE | 2020-06-18 16:20 | NUR ---
PT ARRIVED VIA BED, AWAKE AND ALERT. DAUGHTER AT BEDSIDE. ORIENTED TO ROOM. DENIES NEEDS OR PAIN AT THIS TIME. WOUND VAC ALARMING. WILL NOT SEAL CORRECTLY DUE TO EXCESS SEROSANGUINOUS DRAINAGE AND PLACEMENT ON WOUND VAC TO LEFT FOREARM/AXILLARY AREA. ATTEMPTED TO REINFORCE WITH NO SUCCESS. CALLED AND SPOKE WITH DR. MILLER, HE STATED TO DO THE BEST I COULD TO SEAL IT AND IF I HAD TO, REMOVE DAIKINS IRRIGATION AND JUST DO A REGULAR WOUND VAC. OR IF NONE OF THOSE OPTIONS WORKING TO REMOVE WOUND VAC ENTIRELY AND PLACE WET TO DRY DRESSING WITH DAIKINS SOLUTION. SPENT AN HOUR AND 20 MINUTES ATTEMPTING TO SEAL WOUND VAC. WHOLE SYSTEM CHANGED WITHOUT REMOVING THE ORIGINAL DRESSING. WOUND VAC IS CURRENTLY RUNNING IT SHOULD WITH X3 ICU STAFF MEMBER'S HELP. HEMOSPLIT DRESSING IS BLOODY IT DOES AFTER PLACEMENT. BEDDING CHANGED. CALL LIGHT WITHIN REACH. DRINK RECIEVED PER REQUEST. WILL CONTINUE TO MONITOR.
[2020-06-18 20:54] VITALS: BP 107/55
[2020-06-19 00:48] VITALS: BP 108/53
[2020-06-19 04:46] VITALS: BP 119/57
--- NOTE | 2020-06-19 07:10 | NUR ---
ALERT AND ORIENTED RESTING IN BED WITH EYES OPEN. NO C/O PAIN. NO S/S OF ACUTE DISTRESS NOTED. UP WITH ASSIST. IV TO RIGHT AC, SL. SITE PATENT WITHOUT REDNESS OR SWELLING. SAVANNA SPLIT TO RIGHT CHEST. POD #1 LEFT ARM FISTULA REMOVAL, WOUND VAC IN PLACE. RESERVE LEFT ARM. DENIES ANY NEEDS AT THIS TIME. CALL LIGHT IN REACH. WILL CONTINUE TO MONITOR.
[2020-06-19 08:49] LABS: BASOPHILS 0.1 % (0-2); EOSINOPHILS 0.4 % (0-7); IMMATURE GRANULOCYTES 0.1 % (0-5); LYMPHOCYTES 14.7 % (15-50); MCH 28.2 pg (26.0-34.0); MCHC 29.2 g/dL (31.0-37.0); MCV 96.5 fL (80.0-100.0); MONOCYTES 10.8 % (2-11); NEUTROPHILS 73.9 % (40-80); PLATELET COUNT 241 10x3/uL (130-400); RDW 16.5 % (11.5-14.5); WBC 6.9 10x3/uL (4.8-10.8)
[2020-06-19 08:53] LABS: HEMATOCRIT 27.7 % (36.0-48.0); HEMOGLOBIN 8.1 g/dL (12-16); RBC 2.87 10x6/uL (4.00-5.40)
[2020-06-19 10:58] VITALS: BP 135/73
--- NOTE | 2020-06-19 11:28 | NUR ---
I have reviewed this patient and I concur with the Shift Assessment completed by the Licensed Practical Nurse today this shift.
[2020-06-19 15:27] VITALS: BP 101/44
--- NOTE | 2020-06-19 18:43 | NUR ---
RESTING IN BED WITH EYES OPEN. NO C/O PAIN. NO S/S OF ACUTE DISTRESS NOTED. DENIES ANY NEEDS AT THIS TIME. CALL LIGHT IN REACH. WILL CONTINUE TO MONITOR.
--- NOTE | 2020-06-19 19:43 | NUR ---
REPORT RECEIVED AND ROUNDING COMPLETE, PATIENT ROUNDING COMPLETE. THE PATIENT IS SITTING UP IN BED IN HIGH FOWLERS POSITION. MOTHER AT BEDSIDE. PATIENT SHOWS NO S/SX OF DISTRESS AT THIS TIME. LEFT ARM WOUND VAC IN PLACE. HEMASPLIT TO RIGHT CHEST, DRESSING C/D/I. PATIENT STATES SHE HAS NO NEEDS AT THIS TIME. CALL LIGHT WITHIN REACH AND BED IN LOWEST LOCKED POSITION.
--- NOTE | 2020-06-19 20:30 | NUR ---
CALLED AND TALKED WITH DR. MILLER TO CLARIFY ORDERS ON WOUND VAC IRRIGATION, AKED TO HOLD THE IRRIGATION UNTIL SUNDAY WITH A PERSON FROM [facility] COM[facility] AND INSTRUCTS NURSE HOW TO DO IT CORRECTLY. HE ALSO ASKED TO JUST KEEP WOUND VAC ON UNTIL THEN. WILL FOLLOW THROUGH WITH ORDERS.
[2020-06-19 20:47] VITALS: BP 99/36
--- NOTE | 2020-06-19 23:30 | NUR ---
PATIENT REQUESTED HEMASPLIT DRESSING TO BE CHANGED. USING STERILE TECHIQUE I CLEANED AND REPLACED THE HEMASPLIT DRESSING. PATIENT TOLERATED WELL. BED IN LOWEST LOCKED POSITION AND CALL LIGHT WITHIN REACH. MOTHER AT BEDSIDE.
[2020-06-20 04:30] VITALS: BP 129/58
[2020-06-20 06:06] LABS: BASOPHILS 0.2 % (0-2); EOSINOPHILS 1.7 % (0-7); HEMATOCRIT 25.4 % (36.0-48.0); HEMOGLOBIN 7.6 g/dL (12-16); IMMATURE GRANULOCYTES 0.2 % (0-5); LYMPHOCYTES 17.4 % (15-50); MCH 29.5 pg (26.0-34.0); MCHC 29.9 g/dL (31.0-37.0); MCV 98.4 fL (80.0-100.0); MEAN PLATELET VOLUME 9.6 fL (7.4-10.4); MONOCYTES 14.7 % (2-11); NEUTROPHILS 65.8 % (40-80); PLATELET COUNT 220 10x3/uL (130-400); RBC 2.58 10x6/uL (4.00-5.40); RDW 16.7 % (11.5-14.5); WBC 5.9 10x3/uL (4.8-10.8)
[2020-06-20 06:32] LABS: ANION GAP 12.3 mmol/L (8-16); CALCIUM 8.3 mg/dL (8.5-10.1); CARBON DIOXIDE 28.2 mmol/L (21.0-32.0); POTASSIUM - SERUM 4.5 mmol/L (3.5-5.1); VANCOMYCIN - RANDOM 20.9 ug/mL (10.0-20.0)
[2020-06-20 06:38] LABS: CREATININE - SERUM 7.5 mg/dL (0.6-1.3)
--- NOTE | 2020-06-20 07:20 | NUR ---
RECIEVE REPORT. RESTING IN BED WITH EYES CLOSED. FAMILY AT BEDSIDE. NO SIGNS OF DISTRESS. CONTINUE PLAN OF CARE AND SAFETY PRECAUTIONS.
[2020-06-20 09:17] VITALS: BP 140/68
[2020-06-20 12:08] VITALS: BP 145/67
[2020-06-20 17:11] VITALS: BP 141/56
--- NOTE | 2020-06-20 18:00 | NUR ---
ALERT AND ORIENTED X4. BED BATH AND LINEN CHANGE COMPLETE. DAUGHTER AT BEDSIDE. WOUND VAC TO LT ARM FREE FROM AIR LEAKS. DENIES ANY NEEDS. CONTINUE PLAN OF CARE AND SAFETY PRECAUTIONS.
--- NOTE | 2020-06-20 19:31 | NUR ---
RECEIVED UP IN BED WITH HOB ELEVATED. ALERT AND ORIENTED X4. UP AD MANFRED TO B/R. ANURIC AT THIS TIME. STATES SHE HAS NOT URINATED SINCE SHE HAS BEEN IN THE HOSPITAL. WOUND VAC TO LT UPPER ARM INTACT. DARK RED DRAINAGE IN [place]. LT ARM RESERVED. FISTULA HAS BEEN REMOVED FROM LT ARM. HEMOSPLIT TO RT CHEST WITH DSG INTACT.DENIES ANY NEEDS AT THIS TIME.
[2020-06-20 20:30] VITALS: BP 113/44
[2020-06-21 00:30] VITALS: BP 111/48
[2020-06-21 04:36] VITALS: BP 134/66
[2020-06-21 06:24] LABS: ANION GAP 15.5 mmol/L (8-16); CALCIUM 7.9 mg/dL (8.5-10.1); CARBON DIOXIDE 25.2 mmol/L (21.0-32.0); POTASSIUM - SERUM 4.7 mmol/L (3.5-5.1); VANCOMYCIN - RANDOM 25.1 ug/mL (10.0-20.0)
[2020-06-21 06:25] LABS: CREATININE - SERUM 9.4 mg/dL (0.6-1.3)
[2020-06-21 07:11] LABS: BASOPHILS 0.5 % (0-2); EOSINOPHILS 7.8 % (0-7); IMMATURE GRANULOCYTES 3.5 % (0-5); LYMPHOCYTES 18.2 % (15-50); MCH 28.4 pg (26.0-34.0); MCHC 29.5 g/dL (31.0-37.0); MEAN PLATELET VOLUME 9.2 fL (7.4-10.4); MONOCYTES 11.9 % (2-11); NEUTROPHILS 58.1 % (40-80); PLATELET COUNT 218 10x3/uL (130-400); RBC 2.29 10x6/uL (4.00-5.40); RDW 16.3 % (11.5-14.5); WBC 5.5 10x3/uL (4.8-10.8)
[2020-06-21 07:15] LABS: MCV 96.1 fL (80.0-100.0)
[2020-06-21 07:17] LABS: HEMOGLOBIN 6.5 g/dL (12-16)
--- NOTE | 2020-06-21 07:48 | NUR ---
Called SAVANNAH Reyes to report critical lab, Hgb 6.5. She stated she is on her way in.
[2020-06-21 08:16] VITALS: BP 167/73
--- NOTE | 2020-06-21 11:07 | NUR ---
Dialysis nurse in room with pt, first unit of blood delivered to [facility] dialysis pt.
--- NOTE | 2020-06-21 12:00 | NUR ---
SPOKE TO [facility] TO RETIME MEDS DUE TO DIALYSIS, SEE EMAR.
[2020-06-21 12:18] VITALS: Ht 165.1 cm; Wt 86.6 kg
[2020-06-21 12:48] VITALS: BP 143/77
--- NOTE | 2020-06-21 14:13 | NUR ---
SANTA WITH [facility]/WOUND VAC HERE TO CHANGE OUT WOUND VAC. THERE IS NO CLARIFICATION OF CONTINUING VERAFLOW OR WET TO DRY DRESSINGS PER HIS PROGRESS NOTE. I TALKED TO LORENE AT [facility] AND SHE STATES, " CONTINUE WITH ABBY'S". ORDER PLACED.
[2020-06-21 17:01] VITALS: BP 117/58
--- NOTE | 2020-06-21 18:12 | MORECARE ---
CASE MANAGEMENT DISCHARGE SUMMARY PATIENT: BRODIE CAGE UNIT: [id number] ADM DATE: 06/18/20 AGE: 49 : 72 SEX: F ROOM/BED: D.5711 AUTHOR: BRYANT HERNÁNDEZ PHYSICIAN: REFERRING PHYSICIAN: ANTHONY ESPARZA DO DATE OF SERVICE: 06/21/20 Discharge Plan Patient Name: BRODIE CAGE Facility: [facility]:[place] : 1970 Planned Disposition: Home Health Service Anticipated Discharge Date: Discharge Date: Expected LOS: Initial Reviewer: [email or web address] Initial Review Date: 06/19/2020 Generated: 06/21/20 7:11 pm DCP- Discharge Planning Updated by [email or web address]: Salena Isbell on 06/21/20 5:[address] CM contacted patient for any DC needs. Patient is alert/oriented X3. PCP: Dr. Flores. Pharmacy: [facility]. DME: None. HHS: [facility] (have contacted). Emergency contact: Adriane Cage (daughter 19) [phone]. HD: M/W/F in [facility] unit. Transportation at Dc: Adriane (daughter). CM has begun the process for the patient's wound vac. CM contacted Lisandro Olmedo for [facility], dressing changes. CM will continue to assist and verify home wound vac placement date. Patient Name: BRODIE CAGE Page 22388 at 1812 All edits/amendments must be made on the electronic document DICTATION DATE: 06/21/201810 CARPENTER SUPERVISOR: HEENA 06/21/201810 RPT#: [id number] DC DATE: STATUS: ADM IN [address] [place] [address] END OF REPORT
--- NOTE | 2020-06-21 18:19 | MORECARE ---
CASE MANAGEMENT DISCHARGE SUMMARY PATIENT: BRODIE CAGE UNIT: [id number] ADM DATE: 06/18/20 AGE: 49 : 72 SEX: F ROOM/BED: D.0815 AUTHOR: BRYANT HERNÁNDEZ PHYSICIAN: REFERRING PHYSICIAN: ANTHONY ESPARZA DO DATE OF SERVICE: 06/21/20 Discharge Plan Patient Name: BRODIE CAGE Facility: [facility]:[place] : 1970 Planned Disposition: Home Health Service Anticipated Discharge Date: Discharge Date: Expected LOS: Initial Reviewer: [email or web address] Initial Review Date: 06/19/2020 Generated: 06/21/20 7:18 pm DCP- Discharge Planning Updated by [email or web address]: Salena Isbell on 06/21/20 5:[address] CM contacted patient for any DC needs. Patient is alert/oriented X3. PCP: Dr. Flores. Pharmacy: [facility]. DME: None. HHS: [facility] (have contacted), patient voices no preference. Emergency contact: Adriane Cage (daughter 19) [phone]. HD: M/W/F in [facility] HD unit. Transportation at Dc: Adriane (daughter). CM has begun the process for the patient's wound vac. CM contacted [facility] Ol[facility] for [facility], dressing changes. CM will continue to assist and verify home wound vac placement date. CM has also reached out to Emmanuel Barragan ([facility]) desk representative #[phone], in order to determine the type of dressings that are required with the wound vac. Last DP export: 06/21/20 5:12 p Patient Name: BRODIE CAGE Page 25811 at 1819 All edits/amendments must be made on the electronic document DICTATION DATE: 06/21/201818 NEWS COMMENTATOR: HEENA 06/21/201818 RPT#: [id number] DC DATE: STATUS: ADM IN [facility] [address] [place] [address] END OF REPORT
--- NOTE | 2020-06-21 19:00 | NUR ---
EVENING ROUNDS COMPLETE. PT SITTING UP IN BED. NO SIGNS OF DISTRESS. PT DENIES ANY PAIN OR NEEDS AT THIS TIME. CL IN REACH, BED IN LOWEST POSITION. AAOX4.
[2020-06-21 20:21] VITALS: BP 116/62
[2020-06-22 00:33] VITALS: BP 133/73
[2020-06-22 05:42] LABS: BASOPHILS 0.5 % (0-2); EOSINOPHILS 3.1 % (0-7); IMMATURE GRANULOCYTES 0.5 % (0-5); LYMPHOCYTES 20.9 % (15-50); MCH 28.4 pg (26.0-34.0); MCHC 30.4 g/dL (31.0-37.0); MEAN PLATELET VOLUME 9.3 fL (7.4-10.4); MONOCYTES 10.9 % (2-11); NEUTROPHILS 64.1 % (40-80); PLATELET COUNT 236 10x3/uL (130-400); RDW 17.3 % (11.5-14.5); WBC 6.4 10x3/uL (4.8-10.8)
[2020-06-22 05:48] VITALS: BP 145/69
[2020-06-22 05:50] LABS: HEMATOCRIT 32.2 % (36.0-48.0); HEMOGLOBIN 9.8 g/dL (12-16); MCV 93.3 fL (80.0-100.0); RBC 3.45 10x6/uL (4.00-5.40)
[2020-06-22 06:31] LABS: ANION GAP 15.2 mmol/L (8-16); CALCIUM 8.3 mg/dL (8.5-10.1); CARBON DIOXIDE 27.1 mmol/L (21.0-32.0); CREATININE - SERUM 7.3 mg/dL (0.6-1.3); POTASSIUM - SERUM 4.3 mmol/L (3.5-5.1)
[2020-06-22 08:00] VITALS: BP 115/73
--- NOTE | 2020-06-22 08:42 | MORECARE ---
CASE MANAGEMENT DISCHARGE SUMMARY PATIENT: BRODIE CAGE UNIT: [id number] ADM DATE: 06/18/20 AGE: 49 : 72 SEX: F ROOM/BED: D.3870 AUTHOR: BRYANT HERNÁNDEZ PHYSICIAN: REFERRING PHYSICIAN: ANTHONY ESPARZA DO DATE OF SERVICE: 06/22/20 Discharge Plan Patient Name: BRODIE CAGE Facility: [facility]:[place] : 1970 Planned Disposition: Home Health Service Anticipated Discharge Date: Discharge Date: Expected LOS: Initial Reviewer: [email or web address] Initial Review Date: 06/19/2020 Generated: 06/22/20 9:41 am Comments DCP- Discharge Planning Updated by [email or web address]: Salena Isbell on 06/22/20 7:[address] CM contacted Dr. Flores for his e-mail: Amimon. Dr. Flores states that he will DC 06/23. CM has been in contact with Lisandro Olmedo ([facility]). Information faxed regarding care for [facility]. DCP- Discharge Planning Updated by [email or web address]: Salena Isbell on 06/21/20 5:[address] CM contacted patient for any DC needs. Patient is alert/oriented X3. PCP: Dr. Flores. Pharmacy: [facility]. DME: None. HHS: [facility] (have contacted), patient voices no preference. Emergency contact: Adriane Cage (daughter 19) [phone]. HD: M/W/F in [place] HD unit. Transportation at Dc: Adriane (daughter). QIANA has begun the process for the patient's wound vac. CM contacted Lisandro Olmedo for [facility], dressing changes. CM will continue to assist and verify home wound vac placement date. QIANA has also reached out to Emmanuel Barragan ([facility]) inbound sales representative #[phone], in order to determine the type of dressings that are required with the wound vac. Last DP export: 06/21/20 5:19 p Patient Name: BRODIE CAGE Page 36712 at 0842 All edits/amendments must be made on the electronic document DICTATION DATE: 06/22/20840 NOTCHING MACHINE OPERATOR: HEENA 06/22/20840 RPT#: [id number] DC DATE: STATUS: ADM IN [facility] [address] [place] [address] END OF REPORT
--- NOTE | 2020-06-22 10:37 | MORECARE ---
CASE MANAGEMENT DISCHARGE SUMMARY PATIENT: BRODIE CAGE UNIT: [id number] ADM DATE: 06/18/20 AGE: 49 : 72 SEX: F ROOM/BED: D.2066 AUTHOR: BETTY,DOC PHYSICIAN: REFERRING PHYSICIAN: ANTHONY ESPARZA DO DATE OF SERVICE: 06/22/20 Discharge Plan Patient Name: BRODIE CAGE Facility: [facility]:[place] : 1970 Planned Disposition: Home Health Service Anticipated Discharge Date: 06/23/20 Discharge Date: Expected LOS: 5 Initial Reviewer: [email or web address] Initial Review Date: 06/19/2020 Generated: 06/22/20 11:37 am Comments DCP- Discharge Planning Updated by [id number]: Salena Isbell on 06/22/20 7:[address] CM contacted Dr. Flores for his e-mail: [employer]. Dr. Flores states that he will DC 06/23. CM has been in contact with Lisandro Olmedo ([facility] Information faxed regarding care for [facility]. DCP- Discharge Planning Updated by [email or web address]: Salena Isbell on 06/21/20 5:[address] CM contacted patient for any DC needs. Patient is alert/oriented X3. PCP: Dr. Flores. Pharmacy: [facility]. DME: None. HHS: [facility] (have contacted), patient voices no preference. Emergency contact: Adriane Cage (daughter 19) [phone]. HD: M/W/F in [facility] unit. Transportation at Dc: Adriane (daughter). QIANA has begun the process for the patient's wound vac. QIANA contacted Lisandro Olmedo for [facility], dressing changes. CM will continue to assist and verify home wound vac placement date. QIANA has also reached out to Emmanuel Barragan ([facility]) financial foundations representative #[phone], in order to determine the type of dressings that are required with the wound vac. External Providers External Provider: [facility] Next Contact Date: Service Request Date: Service Type: Resolution: Reviewer: Comments: Last DP export: 06/22/20 7:42 a Patient Name: BRODIE CAGE Page 57727 at 1037 All edits/amendments must be made on the electronic document DICTATION DATE: 06/22/20 1037 DIRECTOR TRAFFIC AND PLANNING: HEENA 06/22/20 1037 RPT#: [id number] DC DATE: STATUS: ADM IN [facility] [address] [place] [address] END OF REPORT
--- NOTE | 2020-06-22 10:45 | MORECARE ---
CASE MANAGEMENT DISCHARGE SUMMARY PATIENT: BRODIE CAGE UNIT: [id number] ADM DATE: 06/18/20 AGE: 49 : 72 SEX: F ROOM/BED: D.3291 AUTHOR: BETTY,DOC PHYSICIAN: REFERRING PHYSICIAN: ANTHONY ESPARZA DO DATE OF SERVICE: 06/22/20 Discharge Plan Patient Name: BRODIE CAGE Facility: [facility]:[place] : 1970 Planned Disposition: Home Health Service Anticipated Discharge Date: 06/23/20 Discharge Date: Expected LOS: 5 Initial Reviewer: [email or web address] Initial Review Date: 06/19/2020 Generated: 06/22/20 11:45 am Comments DCP- Discharge Planning Updated by [email or web address]: Salena Isbell on 06/22/20 9:[address] CM contacted Dr. Flores for his e-mail: [employer]. Dr. Flores states that he will DC 06/23. CM has been in contact with Lisandro Olmedo ([facility]). Information faxed regarding care for HHS. Possible DC home 06/23, with [facility]. DCP- Discharge Planning Updated by [id number]: Salena Isbell on 06/21/20 5:[address] CM contacted patient for any DC needs. Patient is alert/oriented X3. PCP: Dr. Flores. Pharmacy: [facility]. DME: None. HHS: [facility] (have contacted), patient voices no preference. Emergency contact: Adriane Cage (daughter 19) [phone]. HD: M/W/F in [facility] unit. Transportation at Dc: Adriane (daughter). CM has begun the process for the patient's wound vac. CM contacted Lisandro Olmedo for [facility], dressing changes. CM will continue to assist and verify home wound vac placement date. QIANA has also reached out to Emmanuel Barragan ([facility]) communications representative #[phone], in order to determine the type of dressings that are required with the wound vac. Last DP export: 06/22/20 9:37 a Patient Name: BRODIE CAGE Page 28780 at 1045 All edits/amendments must be made on the electronic document DICTATION DATE: 06/22/20 1045 MIXER OPERATOR HELPER HOT METAL: HEENA 06/22/20 1045 RPT#: [id number] DC DATE: STATUS: ADM IN [facility] [address] [place] [address] END OF REPORT
[2020-06-22 11:00] VITALS: BP 150/74
--- NOTE | 2020-06-22 11:15 | MORECARE ---
CASE MANAGEMENT DISCHARGE SUMMARY PATIENT: BRODIE CAGE UNIT: [id number] ADM DATE: 06/18/20 AGE: 49 : 72 SEX: F ROOM/BED: D.4948 AUTHOR: BETTY,BRYANT PHYSICIAN: REFERRING PHYSICIAN: ANTHONY ESPARZA DO DATE OF SERVICE: 06/22/20 Discharge Plan Patient Name: BRODIE CAGE Facility: [facility]:[place] : 1970 Planned Disposition: Home Health Service Anticipated Discharge Date: 06/23/20 Discharge Date: Expected LOS: 5 Initial Reviewer: [id number] Initial Review Date: 06/19/2020 Generated: 06/22/20 12:15 pm Comments DCP- Discharge Planning Updated by [email or web address]: Salena Isbell on 06/22/20 10:[address] CM contacted Dr. Flores for his e-mail: [employer]. Dr. Flores states that he will DC 06/23. CM has been in contact with Lisandro Olmedo ([facility]). Information faxed regarding care for HHS. Possible DC home 06/23, with [facility]. Wound vac #[id number] will be used. DCP- Discharge Planning Updated by [id number]: Salena Isbell on 06/21/20 5:[address] CM contacted patient for any DC needs. Patient is alert/oriented X3. PCP: Dr. Flores. Pharmacy: [facility]. DME: None. HHS: [facility] (have contacted), patient voices no preference. Emergency contact: Adriane Cage (daughter 19) [phone]. HD: M/W/F in [facility] unit. Transportation at [place]: Adriane (daughter). CM has begun the process for the patient's wound vac. CM contacted Lisandro Olmedo for [facility], dressing changes. CM will continue to assist and verify home wound vac placement date. QIANA has also reached out to Emmanuel Barragan ([facility]) tour sales representative #[phone], in order to determine the type of dressings that are required with the wound vac. External Providers External Provider: [facility] [employer] Next Contact Date: Service Request Date: Service Type: Resolution: Reviewer: Comments: Last DP export: 06/22/20 9:45 a Patient Name: BRODIE CAGE Page 28618 at 1115 All edits/amendments must be made on the electronic document DICTATION DATE: 06/22/20 111 FACTORY HELPER: HEENA 06/22/20 1115 RPT#: [id number] DC DATE: STATUS: ADM IN [facility] [address] [place] [address] END OF REPORT
--- NOTE | 2020-06-22 12:13 | MORECARE ---
CASE MANAGEMENT DISCHARGE SUMMARY PATIENT: BRODIE CAGE UNIT: [id number] ADM DATE: 06/18/20 AGE: 49 : 72 SEX: F ROOM/BED: D.4339 AUTHOR: BETTY,BRYANT PHYSICIAN: REFERRING PHYSICIAN: ANTHONY ESPARZA DO DATE OF SERVICE: 06/22/20 Discharge Plan Patient Name: BRODIE CAGE Facility: [facility]:[place] : 1970 Planned Disposition: Home Health Service Anticipated Discharge Date: 06/23/20 Discharge Date: Expected LOS: 5 Initial Reviewer: [email or web address] Initial Review Date: 06/19/2020 Generated: 06/22/20 1:13 pm Comments DCP- Discharge Planning Updated by [email or web address]: Salena Isbell on 06/22/20 11:[address] CM contacted Dr. Flores for his e-mail: [employer]. Dr. Flores states that he will DC 06/23. CM has been in contact with Lisandro Olmedo ([facility]). Information faxed regarding care for HHS. Possible DC home 06/23, with [facility]. Wound Vac #[id number] will be used. All required information has been faxed to [facility]. QIANA contacted Erich, with [facility] to make her aware of order, with planned DC 06/23. HHS SOC will be 06/24. DCP- Discharge Planning Updated by [email or web address]: Salena Isbell on 06/21/20 5:[address] CM contacted patient for any DC needs. Patient is alert/oriented X3. PCP: Dr. Flores. Pharmacy: [facility]. DME: None. HHS: [facility] [place] (have contacted), patient voices no preference. Emergency contact: Adriane Cage (daughter 19) [phone]. HD: M/W/F in [facility] unit. Transportation at [place]: Adriane (daughter). QIANA has begun the process for the patient's wound vac. CM contacted Lisandro Olmedo for [facility], dressing changes. CM will continue to assist and verify home wound vac placement date. QIANA has also reached out to Emmanuel Barragan ([facility]) chemical sales representative #[phone], in order to determine the type of dressings that are required with the wound vac. Last DP export: 06/22/20 10:15 a Patient Name: BRODIE CAGE Page [phone] at 1213 All edits/amendments must be made on the electronic document DICTATION DATE: 06/22/20 1213 ENVIRONMENTAL ENGINEERING AIDE: HEENA 06/22/20 1213 RPT#: [id number] DC DATE: STATUS: ADM IN [facility] [address] [place] [address] END OF REPORT
[2020-06-22 15:00] VITALS: BP 154/73
--- NOTE | 2020-06-22 16:43 | MORECARE ---
CASE MANAGEMENT DISCHARGE SUMMARY PATIENT: SHANI CAGE UNIT: [id number] ADM DATE: 06/18/20 AGE: 49 : 72 SEX: F ROOM/BED: D.6166 AUTHOR: BETTY,BRYANT PHYSICIAN: REFERRING PHYSICIAN: ANTHONY ESPARZA DO DATE OF SERVICE: 06/22/20 Discharge Plan Patient Name: SHANI CAGE Facility: [facility]:[place] : 1970 Planned Disposition: Home Health Service Anticipated Discharge Date: 06/23/20 Discharge Date: Expected LOS: 5 Initial Reviewer: [id number] Initial Review Date: 06/19/2020 Generated: 06/22/20 5:42 pm Comments DCP- Discharge Planning Updated by [email or web address]: Salena Isbell on 06/22/20 11:[address] CM contacted Dr. Flores for his e-mail: [employer] Dr. Flores states that he will DC 06/23. CM has been in contact with Lisandro Olmedo ([facility]). Information faxed regarding care for HHS. Possible DC home 06/23, with [facility]. Wound Vac #[id number] will be used. All required information has been faxed to [facility]. QIANA contacted Erich, with [facility] to make her aware of order, with planned DC 06/23. HHS SOC will be 06/24. DCP- Discharge Planning Updated by [id number]: Salena Isbell on 06/21/20 5:[address] CM contacted patient for any DC needs. Patient is alert/oriented X3. PCP: Dr. Flores. Pharmacy: [facility]. DME: None. HHS: [facility] [place] (have contacted), patient voices no preference. Emergency contact: Adriane Cage (daughter 19) [phone]. HD: M/W/F in [facility] unit. Transportation at [place]: Adriane (daughter). QIANA has begun the process for the patient's wound vac. CM contacted Lisandro Olmedo for [facility], dressing changes. CM will continue to assist and verify home wound vac placement date. QIANA has also reached out to Emmanuel Barragan ([facility]) players club representative #[phone], in order to determine the type of dressings that are required with the wound vac. Coverage Notice Reviewer: [id number] Leonard Isbell Notice Issued Date-Time: 06/22/2020 12:23 Notice Type: Patient Choice Letter Notice Delivered To: Family Member Relationship to Patient: Daughter Warping Machine Operator Name: Cate Wisdom Delivery Method: HAND - Hand Delivered Britney Days: Prior Verbal Notification: Recipient Understood Notice: Yes Recipient Signature: Yes Med Rec Note Co-signed by Attending: Coverage Notice Comment: Patient choice for [facility], declined her copy Reviewer: [id number] Leonard Isbell Notice Issued Date-Time: 06/22/2020 13:30 Notice Type: IM Discharge Notice Notice Delivered To: Patient Relationship to Patient: Self Warping Machine Operator Name: Shani Cage Delivery Method: HAND - Hand Delivered Britney Days: Prior Verbal Notification: Recipient Understood Notice: Yes Recipient Signature: Yes Med Rec Note Co-signed by Attending: Coverage Notice Comment: Dc IM signed by patient, placed on the chart. Declined copy by patient. Last DP export: 06/22/20 11:13 a Patient Name: SHANI CAGE Page 87957 at 1643 All edits/amendments must be made on the electronic document DICTATION DATE: 06/22/201641 MARKETING MANAGER: HEENA 06/22/201641 RPT#: [id number] DC DATE: STATUS: ADM IN [facility] [address] [place] [address] END OF REPORT
[2020-06-22 20:50] VITALS: BP 157/73
[2020-06-23 00:39] VITALS: BP 127/61
--- NOTE | 2020-06-23 01:23 | NUR ---
REC'D. SITTING ON SIDE OF BED DURING WALKING ROUNDS CHGE OF SHIFT.CONTACT ISOLATION CONTINUES.DENIES ANY COMPLAINTS OR DISCOMFORT WILL CONTINUE TO MONITOR FOR ANY CHGES AND FOLLOW CURRENT PLAN OF CARE.
--- NOTE | 2020-06-23 03:15 | NUR ---
I have reviewed this patient and I concur with the Shift Assessment completed by the Licensed Practical Nurse today this shift.
[2020-06-23 04:58] LABS: BASOPHILS 0.4 % (0-2); EOSINOPHILS 3.2 % (0-7); HEMOGLOBIN 10.4 g/dL (12-16); IMMATURE GRANULOCYTES 0.3 % (0-5); LYMPHOCYTES 21.7 % (15-50); MCH 28.4 pg (26.0-34.0); MCHC 30.6 g/dL (31.0-37.0); MCV 92.9 fL (80.0-100.0); MEAN PLATELET VOLUME 9.7 fL (7.4-10.4); MONOCYTES 9.6 % (2-11); NEUTROPHILS 64.8 % (40-80); PLATELET COUNT 263 10x3/uL (130-400); RBC 3.66 10x6/uL (4.00-5.40); RDW 16.5 % (11.5-14.5); WBC 6.9 10x3/uL (4.8-10.8)
[2020-06-23 05:13] VITALS: BP 161/78
[2020-06-23 05:25] LABS: ANION GAP 16.9 mmol/L (8-16); CALCIUM 8.5 mg/dL (8.5-10.1); CARBON DIOXIDE 25.3 mmol/L (21.0-32.0); POTASSIUM - SERUM 4.2 mmol/L (3.5-5.1); VANCOMYCIN - RANDOM 19.6 ug/mL (10.0-20.0)
[2020-06-23 05:28] LABS: CREATININE - SERUM 9.2 mg/dL (0.6-1.3)
[2020-06-23 08:59] VITALS: BP 157/69
--- NOTE | 2020-06-23 09:17 | MORECARE ---
CASE MANAGEMENT DISCHARGE SUMMARY PATIENT: SHANI CAGE UNIT: [id number] ADM DATE: 06/18/20 AGE: 49 : 72 SEX: F ROOM/BED: D.7474 AUTHOR: BRYANT HERNÁNDEZ PHYSICIAN: REFERRING PHYSICIAN: ANTHONY ESPARZA DO DATE OF SERVICE: 06/23/20 Discharge Plan Patient Name: SHANI CAGE Facility: [facility]:[place] : 1970 Planned Disposition: Home Health Service Anticipated Discharge Date: 06/23/20 Discharge Date: Expected LOS: 5 Initial Reviewer: [email or web address] Initial Review Date: 06/19/2020 Generated: 06/23/20 10:16 am Comments DCP- Discharge Planning Updated by [email or web address]: Salena Isbell on 06/23/20 8:[address] CM contacted Dr. Flores regarding signing e-script. Resent per Dr. Flores. DCP- Discharge Planning Updated by [email or web address]: Salena Isbell on 06/22/20 11:[address] CM contacted Dr. Flores for his e-mail: [employer]. Dr. Flores states that he will DC 06/23. QIANA has been in contact with Lisandro Olmedo ([facility]). Information faxed regarding care for HHS. Possible DC home 06/23, with [facility]. Wound Vac #[id number] will be used. All required information has been faxed to [facility]. CM contacted Erich, with [facility] to make her aware of order, with planned DC 06/23. [facility] SOC will be 06/24. DCP- Discharge Planning Updated by [email or web address]: Salena Isbell on 06/21/20 5:[address] CM contacted patient for any DC needs. Patient is alert/oriented X3. PCP: Dr. Flores. Pharmacy[facility]. DME: None. HHS: [facility] (have contacted), patient voices no preference. Emergency contact: Adriane Cage (daughter 19) [phone]. HD: M/W/F in [facility] unit. Transportation at Dc: Adriane (daughter). QIANA has begun the process for the patient's wound vac. CM contacted Lisandro Olmedo for [facility], dressing changes. CM will continue to assist and verify home wound vac placement date. CM has also reached out to Emmanuel Barragan ([facility]) employee representative #[phone], in order to determine the type of dressings that are required with the wound vac. Coverage Notice Reviewer: [id number] Leonard Isbell Notice Issued Date-Time: 06/22/2020 12:23 Notice Type: Patient Choice Letter Notice Delivered To: Family Member Relationship to Patient: Daughter Corporate Trust Officer Name: Cate Wisdom Delivery Method: HAND - Hand Delivered Britney Days: Prior Verbal Notification: Recipient Understood Notice: Yes Recipient Signature: Yes Med Rec Note Co-signed by Attending: Coverage Notice Comment: Patient choice for [facility], declined her copy Reviewer: [id number] Leonard Isbell Notice Issued Date-Time: 06/22/2020 13:30 Notice Type: IM Discharge Notice Notice Delivered To: Patient Relationship to Patient: Self Corporate Trust Officer Name: Shani Cage Delivery Method: HAND - Hand Delivered Britney Days: Prior Verbal Notification: Recipient Understood Notice: Yes Recipient Signature: Yes Med Rec Note Co-signed by Attending: Coverage Notice Comment: Dc IM signed by patient, placed on the chart. Declined copy by patient. Last DP export: 06/22/20 3:43 p Patient Name: SHANI CAGE Page 70996 at 0917 All edits/amendments must be made on the electronic document DICTATION DATE: 06/23/20915 PLUSH DRESSER: HEENA 06/23/20915 RPT#: [id number] DC DATE: STATUS: ADM IN [facility] [address] [place] [address] END OF REPORT
--- NOTE | 2020-06-23 11:08 | NUR ---
I have reviewed this patient and I concur with the Shift Assessment completed by the Licensed Practical Nurse today this shift.
--- NOTE | 2020-06-23 11:18 | NUR ---
MEASUREMENTS TO LEFT ARM FOR WOUND VAC: 8.0 CM X 4.0 CM X 2.0 CM
--- NOTE | 2020-06-23 11:31 | MORECARE ---
CASE MANAGEMENT DISCHARGE SUMMARY PATIENT: SHANI CAGE UNIT: [id number] ADM DATE: 06/18/20 AGE: 49 : 72 SEX: F ROOM/BED: D.6722 AUTHOR: BRYANT HERNÁNDEZ PHYSICIAN: REFERRING PHYSICIAN: ANTHONY ESPARZA DO DATE OF SERVICE: 06/23/20 Discharge Plan Patient Name: SHANI CAGE Facility: [facility]:[place] : 1970 Planned Disposition: Home Health Service Anticipated Discharge Date: 06/23/20 Discharge Date: Expected LOS: 5 Initial Reviewer: [email or web address] Initial Review Date: 06/19/2020 Generated: 06/23/20 12:30 pm Comments DCP- Discharge Planning Updated by [email or web address]: Salena Isbell on 06/23/20 8:[address] CM contacted Dr. Flores regarding signing e-script. Resent per Dr. Flores. DCP- Discharge Planning Updated by [email or web address]: Salena Isbell on 06/22/20 11:[address] CM contacted Dr. Flores for his e-mail: [employer]. Dr. Flores states that he will DC 06/23. QIANA has been in contact with Lisandro Olmedo ([facility]). Information faxed regarding care for HHS. Possible DC home 06/23, with [facility]. Wound Vac #[id number] will be used. All required information has been faxed to [facility]. CM contacted Erich, with [facility] to make her aware of order, with planned DC 06/23. [facility] SOC will be 06/24. DCP- Discharge Planning Updated by [id number]: Salena Isbell on 06/21/20 5:[address] CM contacted patient for any DC needs. Patient is alert/oriented X3. PCP: Dr. Flores. Pharmacy[facility]. DME: None. HHS: [facility] (have contacted), patient voices no preference. Emergency contact: Adriane Cage (daughter 19) [phone]. HD: M/W/F in [facility] unit. Transportation at Dc: Adriane (daughter). QIANA has begun the process for the patient's wound vac. CM contacted Lisandro Olmedo for [facility], dressing changes. CM will continue to assist and verify home wound vac placement date. CM has also reached out to Emmanuel Barragan ([facility]) business office representative #[phone], in order to determine the type of dressings that are required with the wound vac. External Providers External Provider: OTHER-OTHER Next Contact Date: Service Request Date: Service Type: Resolution: Reviewer: Comments: Coverage Notice Reviewer: [id number] Leonard Isbell Notice Issued Date-Time: 06/22/2020 12:23 Notice Type: Patient Choice Letter Notice Delivered To: Family Member Relationship to Patient: Daughter Industrial Commercial Groundskeeper Name: Cate Wisdom Delivery Method: HAND - Hand Delivered Britney Days: Prior Verbal Notification: Recipient Understood Notice: Yes Recipient Signature: Yes Med Rec Note Co-signed by Attending: Coverage Notice Comment: Patient choice for [facility], declined her copy Reviewer: [id number] Leonard Isbell Notice Issued Date-Time: 06/22/2020 13:30 Notice Type: IM Discharge Notice Notice Delivered To: Patient Relationship to Patient: Self Industrial Commercial Groundskeeper Name: Shani Cage Delivery Method: HAND - Hand Delivered Britney Days: Prior Verbal Notification: Recipient Understood Notice: Yes Recipient Signature: Yes Med Rec Note Co-signed by Attending: Coverage Notice Comment: Dc IM signed by patient, placed on the chart. Declined copy by patient. Last DP export: 06/23/20 8:17 a Patient Name: SHANI CAGE Page 14564 at 1131 All edits/amendments must be made on the electronic document DICTATION DATE: 06/23/20 113 CIVIL ENGINEER'S AIDE: HEENA 06/23/20 1130 RPT#: [id number] DC DATE: STATUS: ADM IN [facility] [address] [place] [address] END OF REPORT
--- NOTE | 2020-06-23 12:12 | MORECARE ---
CASE MANAGEMENT DISCHARGE SUMMARY PATIENT: SHANI CAGE UNIT: [id number] ADM DATE: 06/18/20 AGE: 49 : 72 SEX: F ROOM/BED: D.3088 AUTHOR: BRYANT HERNÁNDEZ PHYSICIAN: REFERRING PHYSICIAN: ANTHONY ESPARZA DO DATE OF SERVICE: 06/23/20 Discharge Plan Patient Name: SHANI CAGE Facility: [facility]:[place] : 1970 Planned Disposition: Home Health Service Anticipated Discharge Date: 06/23/20 Discharge Date: Expected LOS: 5 Initial Reviewer: [id number] Initial Review Date: 06/19/2020 Generated: 06/23/20 1:11 pm Comments DCP- Discharge Planning Updated by [id number]: Salena Isbell on 06/23/20 11:[address] 1155: notified the patient of the new order for home IV ABX therapy and will be delivered by [facility], to her room today, with instructions on administration of drug. Patient and daughter agree to same, as long that it does not hold up her discharge. Notified Lisandro Olemdo with [facility] of new order. Order faxed to [facility]. 1130: QIANA contacted Khai with [facility], arranged the IV antibiotics for 6 weeks. Per Khai, the first dose will need to be given today. [facility] will deliver the IV ABX to the patient's room today, and in-service the patient's daughter. QIANA contacted Dr. Rogers regarding first dose of IV ABX, and requested that he enter the order. Dr. Rogers requested that CM enter the order for IV Invanz 500 mg IV QD, with first dose today. Order entered. 10:00 CM was contacted by Dr. Rogers to set up Invanze 500 mg IV ABX for 6 weeks, via PICC line. Order entered for IR to place a PICC line. QIANA contacted Dr. Flores regarding signing e-script. Resent per Dr. Flores. DCP- Discharge Planning Updated by [id number]: Salena Isbell on 06/22/20 11:[address] CM contacted [address]. Flores for his e-mail: [email or web address] [employer]. Dr. Flores states that he will DC 7/29. CM has been in contact with Lisandro Olmedo ([facility]). Information faxed regarding care for HHS. Possible DC home 06/23, with [facility]. Wound Vac #[id number] will be used. All required information [facility] CM contacted Erich, with [facility] to make her aware of order, with planned DC 06/23. HHS SOC will be 06/24. DCP- Discharge Planning Updated by [id number]: Salena Isbell on 06/21/20 5:[address] CM contacted patient for any DC needs. Patient is alert/oriented X3. PCP: Dr. Flores. Pharmacy: [facility]. DME: None. HHS: [facility], [place] (have contacted), patient voices no preference. Emergency contact: Adriane Cage (daughter 19) [phone]. HD: M/W/F in [place] HD unit. Transportation at Dc: Adriane (daughter). CM has begun the process for the patient's wound vac. CM contacted Lisandro Olmedo for [facility] HHS, dressing changes. CM will continue to assist and verify home wound vac placement date. CM has also reached out to Emmanuel Barragan ([facility]) bilingual call center representative #[phone], in order to determine the type of dressings that are required with the wound vac. Coverage Notice Reviewer: [id number] Leonard Isbell Notice Issued Date-Time: 06/22/2020 12:23 Notice Type: Patient Choice Letter Notice Delivered To: Family Member Relationship to Patient: Daughter Completion Manager Name: Cate Wisdom Delivery Method: HAND - Hand Delivered Britney Days: Prior Verbal Notification: Recipient Understood Notice: Yes Recipient Signature: Yes Med Rec Note Co-signed by Attending: Coverage Notice Comment: Patient choice for [facility], declined her copy Reviewer: [id number] - Salena Isbell Notice Issued Date-Time: 06/22/2020 13:30 Notice Type: IM Discharge Notice Notice Delivered To: Patient Relationship to Patient: Self Completion Manager Name: Shani Cage Delivery Method: HAND - Hand Delivered Britney Days: Prior Verbal Notification: Recipient Understood Notice: Yes Recipient Signature: Yes Med Rec Note Co-signed by Attending: Coverage Notice Comment: Dc IM signed by patient, placed on the chart. Declined copy by patient. Last DP export: 06/23/20 10:31 a Patient Name: SHANI CAGE Page [id number] at 1212 All edits/amendments must be made on the electronic document DICTATION DATE: 06/23/20 1211 FUR JOINER: HEENA 06/23/20 1211 RPT#: [id number] DC DATE: STATUS: ADM IN [facility] [address] [place] [address] END OF REPORT
--- NOTE | 2020-06-23 12:19 | MORECARE ---
CASE MANAGEMENT DISCHARGE SUMMARY PATIENT: SHANI CAGE UNIT: [id number] ADM DATE: 06/18/20 AGE: 49 : 72 SEX: F ROOM/BED: D.6764 AUTHOR: BRYANT HERNÁNDEZ PHYSICIAN: REFERRING PHYSICIAN: ANTHONY ESPARZA DO DATE OF SERVICE: 06/23/20 Discharge Plan Patient Name: SHANI CAGE Facility: [facility]:[place] : 1970 Planned Disposition: Home Health Service Anticipated Discharge Date: 06/23/20 Discharge Date: Expected LOS: 5 Initial Reviewer: [id number] Initial Review Date: 06/19/2020 Generated: 06/23/20 1:18 pm Comments DCP- Discharge Planning Updated by [id number]: Salena Isbell on 06/23/20 11:[address] 1155: notified the patient of the new order for home IV ABX therapy and will be delivered by [facility], to her room today, with instructions on administration of drug. Patient and daughter agree to same, as long that it does not hold up her discharge. Notified Lisandro Olmedo with [facility] of new order. Order faxed to [facility]. 1130: QIANA contacted Khai with [facility], arranged the IV antibiotics for 6 weeks. Per Khai, the first dose will need to be given today. [facility] will deliver the IV ABX to the patient's room today, and in-service the patient's daughter. QIANA contacted Dr. Rogers regarding first dose of IV ABX, and requested that he enter the order. Dr. Rogers requested that CM enter the order for IV Invanz 500 mg IV QD, with first dose today. Order entered. 10:00 CM was contacted by Dr. Rogers to set up Invanze 500 mg IV ABX for 6 weeks, via PICC line. Order entered for IR to place a PICC line. QIANA contacted Dr. Flores regarding signing e-script. Resent per Dr. Flores. DCP- Discharge Planning Updated by [id number]: Salena Isbell on 06/22/20 11:[address] CM contacted Dr. Flores for his e-mail: [email or web address]. Dr. Flores states that he will DC 7/29. CM has been in contact with Lisandro Olmedo ([facility]). Information faxed regarding care for HHS. Possible DC home 06/23, with [facility]. Wound Vac #[id number] will be used. All required information has been faxed to [facility]. CM contacted Erich, with [facility] to make her aware of order, with planned DC 06/23. HHS SOC will be 06/24. DCP- Discharge Planning Updated by [id number]: Salena Isbell on 06/21/20 5:[address] CM contacted patient for any DC needs. Patient is alert/oriented X3. PCP: Dr. Flores. Pharmacy: [facility]. DME: None. HHS: [facility], [place] (have contacted), patient voices no preference. Emergency contact: Adriane Cage (daughter 19) [phone]. HD: M/W/F in [place] HD unit. Transportation at Dc: Adriane (daughter). CM has begun the process for the patient's wound vac. CM contacted Lisandro Olmedo for [facility] HHS, dressing changes. CM will continue to assist and verify home wound vac placement date. CM has also reached out to Emmanuel Barragan ([facility]) civil rights representative #[phone], in order to determine the type of dressings that are required with the wound vac. Coverage Notice Reviewer: [id number] Leonard Isbell Notice Issued Date-Time: 06/22/2020 12:23 Notice Type: Patient Choice Letter Notice Delivered To: Family Member Relationship to Patient: Daughter Particle Board Supervisor Name: Cate Wisdom Delivery Method: HAND - Hand Delivered Britney Days: Prior Verbal Notification: Recipient Understood Notice: Yes Recipient Signature: Yes Med Rec Note Co-signed by Attending: Coverage Notice Comment: Patient choice for [facility], declined her copy Reviewer: [id number] - Salena Isbell Notice Issued Date-Time: 06/22/2020 13:30 Notice Type: IM Discharge Notice Notice Delivered To: Patient Relationship to Patient: Self Particle Board Supervisor Name: Shani Cage Delivery Method: HAND - Hand Delivered Britney Days: Prior Verbal Notification: Recipient Understood Notice: Yes Recipient Signature: Yes Med Rec Note Co-signed by Attending: Coverage Notice Comment: Dc IM signed by patient, placed on the chart. Declined copy by patient. Last DP export: 06/23/20 11:12 a Patient Name: SHANI CAGE Page [id number] at 1219 All edits/amendments must be made on the electronic document DICTATION DATE: 06/23/20 121 SASH STICKER: HEENA 06/23/20 1219 RPT#: [id number] DC DATE: STATUS: ADM IN [facility] [address] [place] [address] END OF REPORT
--- NOTE | 2020-06-23 12:26 | MORECARE ---
CASE MANAGEMENT DISCHARGE SUMMARY PATIENT: SHANI CAGE UNIT: [id number] ADM DATE: 06/18/20 AGE: 49 : 72 SEX: F ROOM/BED: D.7688 AUTHOR: BRYANT HERNÁNDEZ PHYSICIAN: REFERRING PHYSICIAN: ANTHONY ESPARZA DO DATE OF SERVICE: 06/23/20 Discharge Plan Patient Name: SHANI CAGE Facility: [facility]:[place] : 1970 Planned Disposition: Home Health Service Anticipated Discharge Date: 06/23/20 Discharge Date: Expected LOS: 5 Initial Reviewer: [id number] Initial Review Date: 06/19/2020 Generated: 06/23/20 1:26 pm Comments DCP- Discharge Planning Updated by [id number]: Salena Isbell on 06/23/20 11:[address] 1155: notified the patient of the new order for home IV ABX therapy and will be delivered by [facility], to her room today, with instructions on administration of drug. Patient and daughter agree to same, as long that it does not hold up her discharge. Notified Lisandro Olmedo with [facility] of new order. Order faxed to [facility]. 1130: QIANA contacted Khai with [facility], arranged the IV antibiotics for 6 weeks. Per Khai, the first dose will need to be given today. [facility] will deliver the IV ABX to the patient's room today, and in-service the patient's daughter. QIANA contacted Dr. Rogers regarding first dose of IV ABX, and requested that he enter the order. Dr. Rogers requested that CM enter the order for IV Invanz 500 mg IV QD, with first dose today. Order entered. 10:00 CM was contacted by Dr. Rogers to set up Invanze 500 mg IV ABX for 6 weeks, via PICC line. Order entered for IR to place a PICC line. QIANA contacted Dr. Flores regarding signing e-script. Resent per Dr. Flores. DCP- Discharge Planning Updated by [id number]: Salena Isbell on 06/22/20 11:[address] CM contacted Dr. Flores for his e-mail: [email or web address]. Dr. Flores states that he will DC 7/29. CM has been in contact with Lisandro Olmedo ([facility]). Information faxed regarding care for HHS. Possible DC home 06/23, with [facility]. Wound Vac #[id number] will be used. All required information has been faxed to [facility]. CM contacted Erich, with [facility] to make her aware of order, with planned DC 06/23. HHS SOC will be 06/24. DCP- Discharge Planning Updated by [id number]: Salena Sukhi on 06/21/20 5:[address] CM contacted patient for any DC needs. Patient is alert/oriented X3. PCP: Dr. Flores. Pharmacy: [facility]. DME: None. HHS: [facility], [place] (have contacted), patient voices no preference. Emergency contact: Adriane Cage (daughter 19) [phone]. HD: M/W/F in [facility] unit. Transportation at Dc: Adriane (daughter). CM has begun the process for the patient's wound vac. CM contacted Lisandro Olmedo for [facility] HHS, dressing changes. CM will continue to assist and verify home wound vac placement date. CM has also reached out to Emmanuel Barragan ([facility]) sales representative gas service #[phone], in order to determine the type of dressings that are required with the wound vac. DCPIA - Discharge Planning Initial Assessment Updated by [id number]: Salena Sukhi on 06/23/20 12:22 pm * Is the patient Alert and Oriented? Yes * How many steps to enter\exit or inside your home? * PCP Dr. Flores * Pharmacy [facility] * Preadmission Environment Home with Family * ADLs Independent * Equipment None * Other Equipment HD [place], M/W/F * List name and contact numbers for known caregivers / representatives who currently or will assist patient after discharge: Adriane Cage (dtr) [phone] * Verbal permission to speak to the caregivers and representatives has been obtained from the patient. Yes * Community resources currently utilized None * Please name any agencies selected above. HHS arranged with [facility] [place] IV ABX: [facility] * Additional services required to return to the preadmission environment? Yes * Can the patient safely return to the preadmission environment? Yes * Has this patient been hospitalized within the prior 30 days at any hospital? No Coverage Notice Reviewer: [id number] Leonard Isbell Notice Issued Date-Time: 06/22/2020 12:23 Notice Type: Patient Choice Letter Notice Delivered To: Family Member Relationship to Patient: Daughter Home Care Coordinator Name: Cate Wisdom Delivery Method: HAND - Hand Delivered Britney Days: Prior Verbal Notification: Recipient Understood Notice: Yes Recipient Signature: Yes Med Rec Note Co-signed by Attending: Coverage Notice Comment: Patient choice for [facility], declined her copy Reviewer: [id number] Leonard Isbell Notice Issued Date-Time: 06/22/2020 13:30 Notice Type: IM Discharge Notice Notice Delivered To: Patient Relationship to Patient: Self Home Care Coordinator Name: Shani Cage Delivery Method: HAND - Hand Delivered Britney Days: Prior Verbal Notification: Recipient Understood Notice: Yes Recipient Signature: Yes Med Rec Note Co-signed by Attending: Coverage Notice Comment: Dc IM signed by patient, placed on the chart. Declined copy by patient. Last DP export: 06/23/20 11:19 a Patient Name: SHANI CAGE Page [id number] at 1226 All edits/amendments must be made on the electronic document DICTATION DATE: 06/23/20 1226 [employer]AURANT MANAGEMENT [employer]NSHIP: HEENA 06/23/20 1226 RPT#: [id number] DC DATE: STATUS: ADM IN [facility] [address] [place] [address] END OF REPORT
--- NOTE | 2020-06-23 14:55 | MORECARE ---
CASE MANAGEMENT DISCHARGE SUMMARY PATIENT: BRODIE CAGE UNIT: [id number] ADM DATE: 06/18/20 AGE: 49 : 72 SEX: F ROOM/BED: D.0256 AUTHOR: BETTY,DOC PHYSICIAN: REFERRING PHYSICIAN: ANTHONY ESPARZA DO DATE OF SERVICE: 06/23/20 Discharge Plan Patient Name: BRODIE CAGE Facility: [facility]:[place] : 1970 Planned Disposition: Home Health Service Anticipated Discharge Date: 06/23/20 Discharge Date: Expected LOS: 5 Initial Reviewer: [id number] Initial Review Date: 06/19/2020 Generated: 06/23/20 3:54 pm Comments DCP- Discharge Planning Updated by [id number]: Salena Isbell on 06/23/20 1:[address] CM faxed patient wound measurements to [facility]. 1155: notified the patient of the new order for home IV ABX therapy and will be delivered by [facility], to her room today, with instructions on administration of drug. Patient and daughter agree to same, as long that it does not hold up her discharge. Notified Lisandro Olmedo with [facility] of new order. Order faxed to [facility]. 1130: CM contacted Khai with [facility], arranged the IV antibiotics for 6 weeks. Per Khai, the first dose will need to be given today. [facility] will deliver the IV ABX to the patient's room today, and in-service the patient's daughter. CM contacted Dr. Rogers regarding first dose of IV ABX, and requested that he enter the order. Dr. Rogers requested that CM enter the order for IV Invanz 500 mg IV QD, with first dose today. Order entered. 10:00 CM was contacted by Dr. Rogers to set up Invanze 500 mg IV ABX for 6 weeks, via PICC line. Order entered for IR to place a PICC line. CM contacted Dr. Flores regarding signing e-script. Resent per Dr. Flores. DCP- Discharge Planning Updated by [id number]: Salena Isbell on 06/22/20 11:[address] CM contacted Dr. Flores for his e-mail: [email or web address]. Dr. Flores states that he will DC 06/23. CM has been in contact with Lisandro Olmedo ([facility]). Information faxed regarding care for HHS. Possible DC home 06/23, with [facility]. Wound Vac #[id number] will be used. All required information has been faxed to [facility]. CM contacted rEich, with [facility] to make her aware of order, with planned DC 06/23. HHS SOC will be 06/24. DCP- Discharge Planning Updated by [id number]: Salena Sukhi on 06/21/20 5:[address] CM contacted patient for any DC needs. Patient is alert/oriented X3. PCP: Dr. Flores. Pharmacy: [facility]. DME: None. HHS: [facility], [place] (have contacted), patient voices no preference. Emergency contact: Adriane Cage (daughter 19) [phone]. HD: M/W/F in [facility] unit. Transportation at Dc: Adriane (daughter). CM has begun the process for the patient's wound vac. CM contacted Lisandro Olmedo for [facility] HHS, dressing changes. CM will continue to assist and verify home wound vac placement date. CM has also reached out to Emmanuel Barragan ([facility]) transportation services representative #[phone], in order to determine the type of dressings that are required with the wound vac. DCPIA - Discharge Planning Initial Assessment Updated by [id number]: Salena Sukhi on 06/23/20 12:22 pm * Is the patient Alert and Oriented? Yes * How many steps to enter\exit or inside your home? * PCP Dr. Flores * Pharmacy [facility] * Preadmission Environment Home with Family * ADLs Independent * Equipment None * Other Equipment HD [place], M/W/F * List name and contact numbers for known caregivers / representatives who currently or will assist patient after discharge: Adriane Cage (dtr) [phone] * Verbal permission to speak to the caregivers and representatives has been obtained from the patient. Yes * Community resources currently utilized None * Please name any agencies selected above. HHS arranged with [facility] [place] IV ABX: [facility] * Additional services required to return to the preadmission environment? Yes * Can the patient safely return to the preadmission environment? Yes * Has this patient been hospitalized within the prior 30 days at any hospital? No Coverage Notice Reviewer: [id number] Isbell Notice Issued Date-Time: 06/22/2020 12:23 Notice Type: Patient Choice Letter Notice Delivered To: Family Member Relationship to Patient: Daughter Pan Shaker Name: Cate Wisdom Delivery Method: HAND - Hand Delivered Britney Days: Prior Verbal Notification: Recipient Understood Notice: Yes Recipient Signature: Yes Med Rec Note Co-signed by Attending: Coverage Notice Comment: Patient choice for [facility], declined her copy Reviewer: [id number] Leonard Isbell Notice Issued Date-Time: 06/22/2020 13:30 Notice Type: IM Discharge Notice Notice Delivered To: Patient Relationship to Patient: Self Pan Shaker Name: Brodie Cage Delivery Method: HAND - Hand Delivered Britney Days: Prior Verbal Notification: Recipient Understood Notice: Yes Recipient Signature: Yes Med Rec Note Co-signed by Attending: Coverage Notice Comment: Dc IM signed by patient, placed on the chart. Declined copy by patient. Last DP export: 06/23/20 11:26 a Patient Name: BRODIE CAGE Page [id number] at 1455 All edits/amendments must be made on the electronic document DICTATION DATE: 06/23/20 1459 DEFENCE INTELLIGENCE ANALYST: HEENA 06/23/20 1455 RPT#: [id number] DC DATE: STATUS: ADM IN [facility] [address] [place] [address] END OF REPORT
--- NOTE | 2020-06-23 16:37 | MORECARE ---
CASE MANAGEMENT DISCHARGE SUMMARY PATIENT: SHANI CAGE UNIT: [id number] ADM DATE: 06/18/20 AGE: 49 : 72 SEX: F ROOM/BED: D.4105 AUTHOR: BRYANT HERNÁNDEZ PHYSICIAN: REFERRING PHYSICIAN: ANTHONY ESPARZA DO DATE OF SERVICE: 06/23/20 Discharge Plan Patient Name: SHANI CAGE Facility: [facility]:[place] : 1970 Planned Disposition: Home Health Service Anticipated Discharge Date: 06/23/20 Discharge Date: Expected LOS: 5 Initial Reviewer: [email or web address] Initial Review Date: 06/19/2020 Generated: 06/23/20 5:36 pm Comments DCP- Discharge Planning Updated by [email or web address]: Salena Isbell on 06/23/20 3:[address] [facility] will see patient 06/24 for SOC. CM faxed patient wound measurements to [facility]. 1155: CM notified the patient of the new order for home IV ABX therapy and will be delivered by [facility], to her room today, with instructions on administration of drug. Patient and daughter agree to same, as long that it does not hold up her discharge. Notified Lisandro Olmedo with Care [facility] of new order. Order faxed to Care IV [facility]. 1130: CM contacted Khai with [facility], arranged the IV antibiotics for 6 weeks. Per Khai, the first dose will need to be given today. [facility] will deliver the IV ABX to the patient's room today, and in-service the patient's daughter. QIANA contacted Dr. Rogers regarding first dose of IV ABX, and requested that he enter the order. Dr. Rogers requested that CM enter the order for IV Invanz 500 mg IV QD, with first dose today. Order entered. 10:00 QIANA was contacted by Dr. Rogers to set up Invanze 500 mg IV ABX for 6 weeks, via PICC line. Order entered for IR to place a PICC line. CM contacted Dr. Flores regarding signing e-script. Resent per Dr. Flores. DCP- Discharge Planning Updated by [email or web address]: Salena Isbell on 06/22/20 11:[address] CM contacted Dr. Flores for his e-mail: [email or web address]. Dr. Flores states that he will DC 06/23. CM has been in contact with Lisandro Olmedo ([facility]). Information faxed regarding care for HHS. Possible DC home 06/23, with [facility]. Wound Vac #[id number] will be used. All required information has been faxed to [facility]. CM contacted Erich, with [facility] to make her aware of order, with planned DC 06/23. HHS SOC will be 06/24. DCP- Discharge Planning Updated by [id number]: Salena Isbell on 06/21/20 5:[address] CM contacted patient for any DC needs. Patient is alert/oriented X3. PCP: Dr. Flores. Pharmacy: [facility]. DME: None. HHS: [facility] [place] (have contacted), patient voices no preference. Emergency contact: Adriane Cage (daughter 19) [phone]. HD: M/W/F in [facility] unit. Transportation at Dc: Adriane (daughter). CM has begun the process for the patient's wound vac. CM contacted Lisandro Olmedo for [facility], dressing changes. CM will continue to assist and verify home wound vac placement date. CM has also reached out to Emmanuel Barragan ([facility]) factory representative #[phone], in order to determine the type of dressings that are required with the wound vac. DCPIA - Discharge Planning Initial Assessment Updated by [id number]: Salena Isbell on 06/23/20 12:22 pm * Is the patient Alert and Oriented? Yes * How many steps to enter\exit or inside your home? * PCP Dr. Flores * Pharmacy [facility] * Preadmission Environment Home with Family * ADLs Independent * Equipment None * Other Equipment [facility], M/W/F * List name and contact numbers for known caregivers / representatives who currently or will assist patient after discharge: Adriane Cage (dtr) [phone] * Verbal permission to speak to the caregivers and representatives has been obtained from the patient. Yes * Community resources currently utilized None * Please name any agencies selected above. HHS arranged with [facility] [place] IV ABX: [facility] * Additional services required to return to the preadmission environment? Yes * Can the patient safely return to the preadmission environment? Yes * Has this patient been hospitalized within the prior 30 days at any hospital? No Coverage Notice Reviewer: [email or web address] Isbell Notice Issued Date-Time: 06/22/2020 12:23 Notice Type: Patient Choice Letter Notice Delivered To: Family Member Relationship to Patient: Daughter Quality Review Specialist Name: Cate Wisdom Delivery Method: HAND - Hand Delivered Britney Days: Prior Verbal Notification: Recipient Understood Notice: Yes Recipient Signature: Yes Med Rec Note Co-signed by Attending: Coverage Notice Comment: Patient choice for [facility] HHS, declined her copy Reviewer: [id number] Leonard Isbell Notice Issued Date-Time: 06/22/2020 13:30 Notice Type: IM Discharge Notice Notice Delivered To: Patient Relationship to Patient: Self Quality Review Specialist Name: Shani Cage Delivery Method: HAND - Hand Delivered Britney Days: Prior Verbal Notification: Recipient Understood Notice: Yes Recipient Signature: Yes Med Rec Note Co-signed by Attending: Coverage Notice Comment: Dc IM signed by patient, placed on the chart. Declined copy by patient. Last DP export: 06/23/20 1:55 p Patient Name: SHANI CAGE Page [id number] at 1637 All edits/amendments must be made on the electronic document DICTATION DATE: 06/23/201635 SUPERVISOR FOOD CHECKERS AND CASHIERS: HEENA 06/23/20 1636 RPT#: [id number] DC DATE: STATUS: ADM IN [facility] [address] [place] [address] END OF REPORT
--- NOTE | 2020-06-23 17:05 | MORECARE ---
CASE MANAGEMENT DISCHARGE SUMMARY PATIENT: BRODIE CAGE UNIT: [id number] ADM DATE: 06/18/20 AGE: 49 : 72 SEX: F ROOM/BED: D.9613 AUTHOR: BETTY,DOC PHYSICIAN: REFERRING PHYSICIAN: ANTHONY ESPARZA DO DATE OF SERVICE: 06/23/20 Discharge Plan Patient Name: BRODIE CAGE Facility: [facility]:[place] : 1970 Planned Disposition: Home Health Service Anticipated Discharge Date: 06/23/20 Discharge Date: Expected LOS: 5 Initial Reviewer: [email or web address] Initial Review Date: 06/19/2020 Generated: 06/23/20 6:05 pm Comments DCP- Discharge Planning Updated by [email or web address]: Salena Isbell on 06/23/20 4:[address] Proof of delivery signed by patient's daughter and faxed to Wendy in [employer]. [facility] will see patient 06/24 for SOC. CM faxed patient wound measurements to [facility]. 1155: notified the patient of the new order for home IV ABX therapy and will be delivered by [facility], to her room today, with instructions on administration of drug. Patient and daughter agree to same, as long that it does not hold up her discharge. Notified Lisandro Olmedo with [facility] of new order. Order faxed to [facility]. 1130: QIANA contacted Khai with [facility], arranged the IV antibiotics for 6 weeks. Per Khai, the first dose will need to be given today. [facility] will deliver the IV ABX to the patient's room today, and in-service the patient's daughter. QIANA contacted Dr. Rogers regarding first dose of IV ABX, and requested that he enter the order. Dr. Rogers requested that CM enter the order for IV Invanz 500 mg IV QD, with first dose today. Order entered. 10:00 QIANA was contacted by Dr. Rogers to set up Invanze 500 mg IV ABX for 6 weeks, via PICC line. Order entered for IR to place a PICC line. QIANA contacted Dr. Flores regarding signing e-script. Resent per Dr. Flores. DCP- Discharge Planning Updated by [email or web address]: Salena Isbell on 06/22/20 11:[address] CM contacted Dr. Flores for his e-mail: [email or web address]. Dr. Flores states that he will DC 06/23. CM has been in contact with Lisandro Olmedo ([facility]). Information faxed regarding care for HHS. Possible DC home 06/23, with [facility]. Wound Vac #[id number] will be used. All required information has been faxed to [facility]. CM contacted Erich, with [facility] to make her aware of order, with planned DC 06/23. HHS SOC will be 06/24. DCP- Discharge Planning Updated by [email or web address]: Salena Isbell on 06/21/20 5:[address] CM contacted patient for any DC needs. Patient is alert/oriented X3. PCP: Dr. Flores. Pharmacy: [facility]. DME: None. HHS: [facility] (have contacted), patient voices no preference. Emergency contact: Adriane Cage (daughter 19) [phone]. HD: M/W/F in [facility] unit. Transportation at Dc: Adriane (daughter). CM has begun the process for the patient's wound vac. CM contacted Lisandro Olmedo for [facility], dressing changes. CM will continue to assist and verify home wound vac placement date. CM has also reached out to Emmanuel Barragan ([facility]) commercial pest control representative #[phone], in order to determine the type of dressings that are required with the wound vac. DCPIA - Discharge Planning Initial Assessment Updated by [email or web address]: Salena Isbell on 06/23/20 12:22 pm * Is the patient Alert and Oriented? Yes * How many steps to enter\exit or inside your home? * PCP Dr. Flores * Pharmacy [facility] * Preadmission Environment Home with Family * ADLs Independent * Equipment None * Other Equipment [facility], M/W/F * List name and contact numbers for known caregivers / representatives who currently or will assist patient after discharge: Adriane Cage (dtr) [phone] * Verbal permission to speak to the caregivers and representatives has been obtained from the patient. Yes * Community resources currently utilized None * Please name any agencies selected above. HHS arranged with [facility] [place] IV ABX: [facility] * Additional services required to return to the preadmission environment? Yes * Can the patient safely return to the preadmission environment? Yes * Has this patient been hospitalized within the prior 30 days at any hospital? No Coverage Notice Reviewer: [email or web address] Isbell Notice Issued Date-Time: 06/22/2020 12:23 Notice Type: Patient Choice Letter Notice Delivered To: Family Member Relationship to Patient: Daughter Cafeteria Aide Name: Cate Wisdom Delivery Method: HAND - Hand Delivered Britney Days: Prior Verbal Notification: Recipient Understood Notice: Yes Recipient Signature: Yes Med Rec Note Co-signed by Attending: Coverage Notice Comment: Patient choice for [facility] HHS, declined her copy Reviewer: [id number] Leonard Isbell Notice Issued Date-Time: 06/22/2020 13:30 Notice Type: IM Discharge Notice Notice Delivered To: Patient Relationship to Patient: Self Cafeteria Aide Name: Brodie Cage Delivery Method: HAND - Hand Delivered Britney Days: Prior Verbal Notification: Recipient Understood Notice: Yes Recipient Signature: Yes Med Rec Note Co-signed by Attending: Coverage Notice Comment: Dc IM signed by patient, placed on the chart. Declined copy by patient. Last DP export: 06/23/20 3:37 p Patient Name: BRODIE CAGE Page [id number] at 1705 All edits/amendments must be made on the electronic document DICTATION DATE: 06/23/20 170 CONTRACT SHELTERED WORKSHOP SUPERVISOR: HEENA 06/23/20 1705 RPT#: [id number] DC DATE: STATUS: ADM IN [facility] [address] [place] [address] END OF REPORT
--- NOTE | 2020-06-23 17:13 | MORECARE ---
CASE MANAGEMENT DISCHARGE SUMMARY PATIENT: SHANI CAGE UNIT: [id number] ADM DATE: 06/18/20 AGE: 49 : 72 SEX: F ROOM/BED: D.4010 AUTHOR: BETTY,DOC PHYSICIAN: REFERRING PHYSICIAN: ANTHONY ESPARZA DO DATE OF SERVICE: 06/23/20 Discharge Plan Patient Name: SHANI CAGE Facility: [facility]:[place] : 1970 Planned Disposition: Home Health Service Anticipated Discharge Date: 06/23/20 Discharge Date: Expected LOS: 5 Initial Reviewer: [id number] Initial Review Date: 06/19/2020 Generated: 06/23/20 6:12 pm Comments DCP- Discharge Planning Updated by [email or web address]: Salena Isbell on 06/23/20 4:[address] Proof of delivery signed by patient's daughter and faxed to Wendy in [employer]. Await delivery. QIANA received a call from [place], with [facility] [employer] regarding shipment of IV ABX to the home and teaching patient/daughter 06/24 in the afternoon. Patient notified of same. Care will see patient 06/24 for SOC. CM faxed patient wound measurements to [facility]. 1155: notified the patient of the new order for home IV ABX therapy and will be delivered by [facility], to her room today, with instructions on administration of drug. Patient and daughter agree to same, as long that it does not hold up her discharge. Notified Lisandro Olmedo with [facility] of new order. Order faxed to [facility] HHS. 1130: QIANA contacted [place] with [facility], arranged the IV antibiotics for 6 weeks. Per [place], the first dose will need to be given today. [facility] will deliver the IV ABX to the patient's room today, and in-service the patient's daughter. QIANA contacted Dr. Rogers regarding first dose of IV ABX, and requested that he enter the order. Dr. Rogers requested that CM enter the order for IV Invanz 500 mg IV QD, with first dose today. Order entered. 10:00 QIANA was contacted by Dr. Rogers to set up Invanze 500 mg IV ABX for 6 weeks, via PICC line. Order entered for IR to place a PICC line. CM contacted Dr. Flores regarding signing e-script. Resent per Dr. Flores. DCP- Discharge Planning Updated by [id number]: Salena Isbell on 06/22/20 11:[address] CM contacted Dr. Flores for his e-mail: [email or web address]. Dr. Flores states that he will DC 06/23. CM has been in contact with Lisandro Olmedo ([facility]). Information faxed regarding care for HHS. Possible DC home 06/23, with [facility]. Wound Vac #[id number] will be used. All required information has been faxed to [facility]. CM contacted Erich, with [facility] to make her aware of order, with planned DC 06/23. HHS SOC will be 06/24. DCP- Discharge Planning Updated by [email or web address]: Salena Isbell on 06/21/20 5:[address] CM contacted patient for any DC needs. Patient is alert/oriented X3. PCP: Dr. Flores. Pharmacy: [facility]. DME: None. HHS: [facility] (have contacted), patient voices no preference. Emergency contact: Adriane Cage (daughter 19) [phone]. HD: M/W/F in [facility] unit. Transportation at [place]: Adriane (daughter). CM has begun the process for the patient's wound vac. CM contacted Lisandro Olmedo for [facility] HHS, dressing changes. CM will continue to assist and verify home wound vac placement date. CM has also reached out to Emmanuel Barragan ([facility]) self pay representative #[phone], in order to determine the type of dressings that are required with the wound vac. DCPIA - Discharge Planning Initial Assessment Updated by [id number]: Salena Isbell on 06/23/20 12:22 pm * Is the patient Alert and Oriented? Yes * How many steps to enter\exit or inside your home? * PCP Dr. Flores * Pharmacy [facility] * Preadmission Environment Home with Family * ADLs Independent * Equipment None * Other Equipment [facility], M/W/F * List name and contact numbers for known caregivers / representatives who currently or will assist patient after discharge: Adriane Cage (dtr) [phone] * Verbal permission to speak to the caregivers and representatives has been obtained from the patient. Yes * Community resources currently utilized None * Please name any agencies selected above. HHS arranged with [facility] [place] IV ABX: [facility] * Additional services required to return to the preadmission environment? Yes * Can the patient safely return to the preadmission environment? Yes * Has this patient been hospitalized within the prior 30 days at any hospital? No Coverage Notice Reviewer: [email or web address] Isbell Notice Issued Date-Time: 06/22/2020 12:23 Notice Type: Patient Choice Letter Notice Delivered To: Family Member Relationship to Patient: Daughter Installer Technician Name: Cate Wisdom Delivery Method: HAND - Hand Delivered Britney Days: Prior Verbal Notification: Recipient Understood Notice: Yes Recipient Signature: Yes Med Rec Note Co-signed by Attending: Coverage Notice Comment: Patient choice for [facility] HHS, declined her copy Reviewer: [email or web address] Leonard Isbell Notice Issued Date-Time: 06/22/2020 13:30 Notice Type: IM Discharge Notice Notice Delivered To: Patient Relationship to Patient: Self Installer Technician Name: Shani Cage Delivery Method: HAND - Hand Delivered Britney Days: Prior Verbal Notification: Recipient Understood Notice: Yes Recipient Signature: Yes Med Rec Note Co-signed by Attending: Coverage Notice Comment: Dc IM signed by patient, placed on the chart. Declined copy by patient. Last DP export: 06/23/20 4:05 p Patient Name: SHANI CAGE Page [id number] at 1713 All edits/amendments must be made on the electronic document DICTATION DATE: 06/23/201711 EMERGENCY MANAGER: HEENA 06/23/201711 RPT#: [id number] DC DATE: STATUS: ADM IN [facility] [address] [place] [address] END OF REPORT
--- NOTE | 2020-06-24 08:53 | MORECARE ---
CASE MANAGEMENT DISCHARGE SUMMARY PATIENT: SHANI CAGE UNIT: [id number] ADM DATE: 06/18/20 AGE: 49 : 72 SEX: F ROOM/BED: D.5142 AUTHOR: BETTY,DOC PHYSICIAN: REFERRING PHYSICIAN: ANTHONY ESPARZA DO DATE OF SERVICE: 06/24/20 Discharge Plan Patient Name: SHANI CAGE Facility: [facility]:[place] : 1970 Planned Disposition: Home Health Service Anticipated Discharge Date: 06/23/20 Discharge Date: 06/23/2020 Expected LOS: 5 Initial Reviewer: [email or web address] Initial Review Date: 06/19/2020 Generated: 06/24/20 9:52 am Comments DCP- Discharge Planning Updated by [email or web address]: Salena Isbell on 06/23/20 4:[address] Proof of delivery signed by patient's daughter and faxed to [facility] in [place]. Await delivery. QIANA received a call from [place], with [employer] regarding shipment of IV ABX to the home and teaching patient/daughter 06/24 in the afternoon. Patient notified of same. Care [facility] will see patient 06/24 for SOC. CM faxed patient wound measurements to [facility]. 1155: notified the patient of the new order for home IV ABX therapy and will be delivered by [facility], to her room today, with instructions on administration of drug. Patient and daughter agree to same, as long that it does not hold up her discharge. Notified Lisandro Olmedo with [facility] of new order. Order faxed to [facility] HHS. 1130: QIANA contacted [place] with [facility], arranged the IV antibiotics for 6 weeks. Per [place], the first dose will need to be given today. [facility] will deliver the IV ABX to the patient's room today, and in-service the patient's daughter. QIANA contacted Dr. Rogers regarding first dose of IV ABX, and requested that he enter the order. Dr. Rogers requested that CM enter the order for IV Invanz 500 mg IV QD, with first dose today. Order entered. 10:00 QIANA was contacted by Dr. Rogers to set up Invanze 500 mg IV ABX for 6 weeks, via PICC line. Order entered for IR to place a PICC line. CM contacted Dr. Flores regarding signing e-script. Resent per Dr. Flores. DCP- Discharge Planning Updated by [id number]: Salena Isbell on 06/22/20 11:[address] CM contacted Dr. Flores for his e-mail: [email or web address]. Dr. Flores states that he will DC 06/23. CM has been in contact with Lisandro Olmedo (Care [facility]). Information faxed regarding care for HHS. Possible DC home 06/23, with [facility]. Wound Vac #[id number] will be used. All required information has been faxed to [facility]. CM contacted Erich, with [facility] to make her aware of order, with planned DC 06/23. HHS SOC will be 06/24. DCP- Discharge Planning Updated by [id number]: Salena Isbell on 06/21/20 5:[address] CM contacted patient for any DC needs. Patient is alert/oriented X3. PCP: Dr. Flores. Pharmacy: [facility]. DME: None. HHS: [facility], [place] (have contacted), patient voices no preference. Emergency contact: Adriane Cage (daughter 19) [phone]. HD: M/W/F in [facility] unit. Transportation at [place]: Adriane (daughter). CM has begun the process for the patient's wound vac. CM contacted Lisandro Olmedo for [facility] HHS, dressing changes. CM will continue to assist and verify home wound vac placement date. QIANA has also reached out to Emmanuel Barragan ([facility]) leather goods sales representative #[phone], in order to determine the type of dressings that are required with the wound vac. DCPIA - Discharge Planning Initial Assessment Updated by [email or web address]: Salena Isbell on 06/23/20 12:22 pm * Is the patient Alert and Oriented? Yes * How many steps to enter\exit or inside your home? * PCP Dr. Flores * Pharmacy [facility] * Preadmission Environment Home with Family * ADLs Independent * Equipment None * Other Equipment [facility] [place], M/W/F * List name and contact numbers for known caregivers / representatives who currently or will assist patient after discharge: Adriane Cage (dtr) [phone] * Verbal permission to speak to the caregivers and representatives has been obtained from the patient. Yes * Community resources currently utilized None * Please name any agencies selected above. HHS arranged with [facility] [place] IV ABX: [facility] * Additional services required to return to the preadmission environment? Yes * Can the patient safely return to the preadmission environment? Yes * Has this patient been hospitalized within the prior 30 days at any hospital? No Coverage Notice Reviewer: [id number] Isbell Notice Issued Date-Time: 06/22/2020 12:23 Notice Type: Patient Choice Letter Notice Delivered To: Family Member Relationship to Patient: Daughter Yarn Dyer Name: Cate Wisdom Delivery Method: HAND - Hand Delivered Britney Days: Prior Verbal Notification: Recipient Understood Notice: Yes Recipient Signature: Yes Med Rec Note Co-signed by Attending: Coverage Notice Comment: Patient choice for [facility] HHS, declined her copy Reviewer: [id number] Leonard Isbell Notice Issued Date-Time: 06/22/2020 13:30 Notice Type: IM Discharge Notice Notice Delivered To: Patient Relationship to Patient: Self Yarn Dyer Name: Shani Cage Delivery Method: HAND - Hand Delivered Britney Days: Prior Verbal Notification: Recipient Understood Notice: Yes Recipient Signature: Yes Med Rec Note Co-signed by Attending: Coverage Notice Comment: Dc IM signed by patient, placed on the chart. Declined copy by patient. Last DP export: 06/23/20 4:13 p Patient Name: SHANI CAGE Page [phone] at 0853 All edits/amendments must be made on the electronic document DICTATION DATE: 06/24/20 0852 PROCUREMENT PROFESSIONAL: HEENA 06/24/20 0852 RPT#: [id number] DC DATE:06/23/20 STATUS: DIS IN [facility] [address] [place] [address] END OF REPORT
--- NOTE | 2020-06-24 09:08 | MORECARE ---
CASE MANAGEMENT DISCHARGE SUMMARY PATIENT: SHANI CAGE UNIT: [id number] ADM DATE: 06/18/20 AGE: 49 : 72 SEX: F ROOM/BED: D.0252 AUTHOR: BETTY,DOC PHYSICIAN: REFERRING PHYSICIAN: ANTHONY ESPARZA DO DATE OF SERVICE: 06/24/20 Discharge Plan Patient Name: SHANI CAGE Facility: [facility]:[place] : 1970 Planned Disposition: Home Health Service Anticipated Discharge Date: 06/23/20 Discharge Date: 06/23/2020 Expected LOS: 5 Initial Reviewer: [email or web address] Initial Review Date: 06/19/2020 Generated: 06/24/20 10:07 am Comments DCP- Discharge Planning Updated by [email or web address]: Salena Isbell on 06/24/20 8:[address] Late entry: [address] Rogers that the wound vac and IV ABX are arranged and a DC order will be needed. Dr. Rogers requested that CM put in the DC order. Order entered. Wound Vac #[id number]. DCP- Discharge Planning Updated by [email or web address]: Salena Isbell on 06/23/20 4:[address] Proof of delivery signed by patient's daughter and faxed to Wendy in [employer]. Await delivery. QIANA received a call from [place], with [facility] regarding shipment of IV ABX to the home and teaching patient/daughter 06/24 in the afternoon. Patient notified of same. [facility] will see patient 06/24 for SOC. CM faxed patient wound measurements to [facility]. 1155: QIANA notified the patient of the new order for home IV ABX therapy and will be delivered by [facility], to her room today, with instructions on administration of drug. Patient and daughter agree to same, as long that it does not hold up her discharge. Notified Lisandro Olmedo with [facility] of new order. Order faxed to [facility]. 1130: QIANA contacted [place] with [facility], arranged the IV antibiotics for 6 weeks. Per [place], the first dose will need to be given today. [facility] will deliver the IV ABX to the patient's room today, and in-service the patient's daughter. CM contacted Dr. Rogers regarding first dose of IV ABX, and requested that he enter the order. Dr. Rogers requested that CM enter the order for IV Invanz 500 mg IV QD, with first dose today. Order entered. 10:00 CM was contacted by Dr. Rogers to set up Invanze 500 mg IV ABX for 6 weeks, via PICC line. Order entered for IR to place a PICC line. CM contacted Dr. Flores regarding signing e-script. Resent per Dr. Flores. DCP- Discharge Planning Updated by [id number]: Salena Isbell on 06/22/20 11:[address] CM contacted Dr. Flores for his e-mail: Apprats. Dr. Flores states that he will DC 06/23. CM has been in contact with Lisandro Olmedo ([facility]). Information faxed regarding care for HHS. Possible DC home 06/23, with [facility]. Wound Vac #[id number] will be used. All required information has been faxed to [facility]. CM contacted Erich, with [facility] to make her aware of order, with planned DC 06/23. HHS SOC will be 06/24. DCP- Discharge Planning Updated by [id number]: Salena Isbell on 06/21/20 5:[address] CM contacted patient for any DC needs. Patient is alert/oriented X3. PCP: Dr. Flores. Pharmacy: [facility]. DME: None. HHS: [facility] [place] (have contacted), patient voices no preference. Emergency contact: Adriane Cage (daughter 19) [phone]. HD: M/W/F in [place] HD unit. Transportation at Dc: Adriane (daughter). QIANA has begun the process for the patient's wound vac. QIANA contacted Lisandro Olmedo for [facility], dressing changes. CM will continue to assist and verify home wound vac placement date. QIANA has also reached out to Emmanuel Barragan ([facility]) jewelry sales representative #[phone], in order to determine the type of dressings that are required with the wound vac. DCPIA - Discharge Planning Initial Assessment Updated by [id number]: Salena Isbell on 06/23/20 12:22 pm * Is the patient Alert and Oriented? Yes * How many steps to enter\exit or inside your home? * PCP Dr. Flores * Pharmacy [facility] * Preadmission Environment Home with Family * ADLs Independent * Equipment None * Other Equipment HD [facility], M/W/F * List name and contact numbers for known caregivers / representatives who currently or will assist patient after discharge: Adriane Cage (dtr) [phone] * Verbal permission to speak to the caregivers and representatives has been obtained from the patient. Yes * Community resources currently utilized None * Please name any agencies selected above. HHS arranged with [facility] [place] IV ABX: [facility] * Additional services required to return to the preadmission environment? Yes * Can the patient safely return to the preadmission environment? Yes * Has this patient been hospitalized within the prior 30 days at any hospital? No Coverage Notice Reviewer: [email or web address] Isbell Notice Issued Date-Time: 06/22/2020 12:23 Notice Type: Patient Choice Letter Notice Delivered To: Family Member Relationship to Patient: Daughter [employer] And [employer] Supervisor Name: Cate Wisdom Delivery Method: HAND - Hand Delivered Britney Days: Prior Verbal Notification: Recipient Understood Notice: Yes Recipient Signature: Yes Med Rec Note Co-signed by Attending: Coverage Notice Comment: Patient choice for [facility], declined her copy Reviewer: [email or web address] Isbell Notice Issued Date-Time: 06/22/2020 13:30 Notice Type: IM Discharge Notice Notice Delivered To: Patient Relationship to Patient: Self [employer] Supervisor Name: Shani Cage Delivery Method: HAND - Hand Delivered Britney Days: Prior Verbal Notification: Recipient Understood Notice: Yes Recipient Signature: Yes Med Rec Note Co-signed by Attending: Coverage Notice Comment: Dc IM signed by patient, placed on the chart. Declined copy by patient. Last DP export: 06/24/20 7:53 a Patient Name: SHANI CAGE Page [id number] at 0908 All edits/amendments must be made on the electronic document DICTATION DATE: 06/24/20906 MAPPING ANALYST: HEENA 06/24/20 09 RPT#: [id number] DC DATE:06/23/20 STATUS: DIS IN [facility] [address] [place] [address] END OF REPORT
--- NOTE | 2020-06-24 10:02 | MORECARE ---
CASE MANAGEMENT DISCHARGE SUMMARY PATIENT: SHANI CAGE UNIT: [id number] ADM DATE: 06/18/20 AGE: 49 : 72 SEX: F ROOM/BED: D.3354 AUTHOR: BETTY,DOC PHYSICIAN: REFERRING PHYSICIAN: ANTHONY ESPARZA DO DATE OF SERVICE: 06/24/20 Discharge Plan Patient Name: SHANI CAGE Facility: [facility]:[place] : 1970 Planned Disposition: Home Health Service Anticipated Discharge Date: 06/23/20 Discharge Date: 06/23/2020 Expected LOS: 5 Initial Reviewer: [email or web address] Initial Review Date: 06/19/2020 Generated: 06/24/20 11:01 am Comments DCP- Discharge Planning Updated by [email or web address]: Salena Isbell on 06/24/20 8:[address] CM faxed the Proof of Delivery to [facility]. #[id number] placed 06/23. DCP- Discharge Planning Updated by [email or web address]: Salena Isbell on 06/24/20 8:[address] Late entry: [address] Rogesr that the wound vac and IV ABX are arranged and a DC order will be needed. Dr. Rogers requested that CM put in the DC order. Order entered. Wound Vac #[id number]. DCP- Discharge Planning Updated by [id number]: Salena Isbell on 06/23/20 4:[address] Proof of delivery signed by patient's daughter and faxed to Wendy in [employer]. Await delivery. QIANA received a call from Khai, with [facility] regarding shipment of IV ABX to the home and teaching patient/daughter 06/24 in the afternoon. Patient notified of same. [facility] will see patient 06/24 for SOC. CM faxed patient wound measurements to [facility]. 1155: QIANA notified the patient of the new order for home IV ABX therapy and will be delivered by [facility], to her room today, with instructions on administration of drug. Patient and daughter agree to same, as long that it does not hold up her discharge. Notified Lisandro Olmedo with [facility] of new order. Order faxed to [facility]. 1130: CM contacted Khai with [facility], arranged the IV antibiotics for 6 weeks. Per Khai, the first dose will need to be given today. [facility] will deliver the IV ABX to the patient's room today, and in-service the patient's daughter. QIANA contacted Dr. Rogers regarding first dose of IV ABX, and requested that he enter the order. Dr. Rogers requested that CM enter the order for IV Invanz 500 mg IV QD, with first dose today. Order entered. 10:00 CM was contacted by Dr. Rogers to set up Invanze 500 mg IV ABX for 6 weeks, via PICC line. Order entered for IR to place a PICC line. CM contacted Dr. Flores regarding signing e-script. Resent per Dr. Flores. DCP- Discharge Planning Updated by [id number]: Salena Isbell on 06/22/20 11:[address] CM contacted Dr. Flores for his e-mail: [employer]. Dr. Flores states that he will DC 06/23. QIANA has been in contact with Lisandro Olmedo ([facility]). Information faxed regarding care for [facility]. Possible DC home 06/23, with [facility]. Wound Vac #[id number] will be used. All required information has been faxed to [facility]. QIANA contacted Erich, with [facility] to make her aware of order, with planned DC 06/23. HHS SOC will be 06/24. DCP- Discharge Planning Updated by [id number]: Salena Isbell on 06/21/20 5:[address] CM contacted patient for any DC needs. Patient is alert/oriented X3. PCP: Dr. Flores. Pharmacy: [facility]. DME: None. HHS: [facility] (have contacted), patient voices no preference. Emergency contact: Adriane Cage (daughter 19) [phone]. HD: M/W/F in [place] HD unit. Transportation at [place]: Adriane (daughter). CM has begun the process for the patient's wound vac. CM contacted Lisandro Olmedo for [facility], dressing changes. CM will continue to assist and verify home wound vac placement date. QIANA has also reached out to Emmanuel Barragan ([facility]) textile machinery sales representative #[phone], in order to determine the type of dressings that are required with the wound vac. DCPIA - Discharge Planning Initial Assessment Updated by [email or web address]: Salena Isbell on 06/23/20 12:22 pm * Is the patient Alert and Oriented? Yes * How many steps to enter\exit or inside your home? * PCP Dr. Flores * Pharmacy [facility] * Preadmission Environment Home with Family * ADLs Independent * Equipment None * Other Equipment HD [facility], M/W/F * List name and contact numbers for known caregivers / representatives who currently or will assist patient after discharge: Adriane Cage (dtr) [phone] * Verbal permission to speak to the caregivers and representatives has been obtained from the patient. Yes * Community resources currently utilized None * Please name any agencies selected above. HHS arranged with [facility] [place] IV ABX: [facility] * Additional services required to return to the preadmission environment? Yes * Can the patient safely return to the preadmission environment? Yes * Has this patient been hospitalized within the prior 30 days at any hospital? No Coverage Notice Reviewer: [email or web address] Leonard Isbell Notice Issued Date-Time: 06/22/2020 12:23 Notice Type: Patient Choice Letter Notice Delivered To: Family Member Relationship to Patient: Daughter Collections Assistant Name: Cate Wisdom Delivery Method: HAND - Hand Delivered Britney Days: Prior Verbal Notification: Recipient Understood Notice: Yes Recipient Signature: Yes Med Rec Note Co-signed by Attending: Coverage Notice Comment: Patient choice for [facility], declined her copy Reviewer: [email or web address] Leonard Isbell Notice Issued Date-Time: 06/22/2020 13:30 Notice Type: IM Discharge Notice Notice Delivered To: Patient Relationship to Patient: Self Collections Assistant Name: Shani Cage Delivery Method: HAND - Hand Delivered Britney Days: Prior Verbal Notification: Recipient Understood Notice: Yes Recipient Signature: Yes Med Rec Note Co-signed by Attending: Coverage Notice Comment: Dc IM signed by patient, placed on the chart. Declined copy by patient. Last DP export: 06/24/20 8:08 a Patient Name: SHANI CAGE Page 00107 at 1002 All edits/amendments must be made on the electronic document DICTATION DATE: 06/24/20 1001 SENIOR RECEPTIONIST: HEENA 06/24/20 1001 RPT#: [id number] DC DATE:06/23/20 STATUS: DIS IN [facility] [address] [facility] [place] [address] END OF REPORT
== END 2020-06-23 20:13 | disposition home health service (06) | DRG 264 ==
LOC: D.M2 07:13 → D.OPS 07:13 → D.M2 14:42 → D.OPS 14:43 → D.M2 14:43
PROVIDERS: Anesthesiology; Internal Medicine Nephrology; Surgery; ADMIT Internal Medicine; ATTEND Internal Medicine
PROC: B5131ZA Fluoroscopy of Right Jugular Veins using Low Osmolar Contrast, Guidance (ICD-10-PCS; 2020-06-18)
PROC: 03PY07Z Removal of Autologous Tissue Substitute from Upper Artery, Open Approach (ICD-10-PCS; principal; 2020-06-18 10:00)
PROC: 05HM33Z Insertion of Infusion Device into Right Internal Jugular Vein, Percutaneous Approach (ICD-10-PCS; 2020-06-18 10:00)
PROC: 5A1D70Z Performance of Urinary Filtration, Intermittent, Less than 6 Hours Per Day (ICD-10-PCS; 2020-06-21)
DX: T82.7XXA Infection and inflammatory reaction due to other cardiac and vascular devices, implants and grafts, initial encounter (principal); N18.6 End stage renal disease; I12.0 Hypertensive chronic kidney disease with stage 5 chronic kidney disease or end stage renal disease; T82.868A Thrombosis due to vascular prosthetic devices, implants and grafts, initial encounter; I25.10 Atherosclerotic heart disease of native coronary artery without angina pectoris; D63.1 Anemia in chronic kidney disease

== ENCOUNTER 2020-09-10 06:32 | Day surgery (SDC) | payer MEDICARE, BC ==
[2020-06-21 12:18] VITALS: Wt 86.2 kg
[~2020-09-10 06:32] MED LIST changes: +COLACE100 MG PO
[2020-09-10 07:06] LABS: INR 0.88 (0.85-1.17); PROTIME 11.9 SECONDS (11.6-15.0)
[2020-09-10 07:08] LABS: ANION GAP 17.9 mmol/L (8-16); CALCIUM 8.8 mg/dL (8.5-10.1); CARBON DIOXIDE 25.6 mmol/L (21.0-32.0); CREATININE - SERUM 10.1 mg/dL (0.6-1.3); POTASSIUM - SERUM 4.5 mmol/L (3.5-5.1)
[2020-09-10 07:30] LABS: BASOPHILS 0.3 % (0-2); HEMATOCRIT 49.8 % (36.0-48.0); IMMATURE GRANULOCYTES 0.1 % (0-5); LYMPHOCYTES 23.6 % (15-50); MCH 27.7 pg (26.0-34.0); MCHC 30.1 g/dL (31.0-37.0); MCV 92.1 fL (80.0-100.0); MONOCYTES 9.1 % (2-11); NEUTROPHILS 64.9 % (40-80); PLATELET COUNT 217 10x3/uL (130-400); RBC 5.41 10x6/uL (4.00-5.40); RDW 16.5 % (11.5-14.5)
--- NOTE | 2020-09-10 11:48 | NUR ---
PER ANESTHESIA PT OK TO GO WITH BP OF 170 SYSTOLIC.
--- NOTE | 2020-09-14 14:47 | OP ---
PATIENT NAME: BRODIE CAGE MEDICAL RECORD: [id number] :72 LOCATION:[facility] ADMISSION DATE: SURGEON: LINDA MILLER MD DATE OF OPERATION: 09/10/2020 REFERRED BY: Carlos Gonzalez MD PREOPERATIVE DIAGNOSES: End-stage renal disease and dependence on hemodialysis with requirement for long-term dialysis access. POSTOPERATIVE DIAGNOSES: End-stage renal disease and dependence on hemodialysis with requirement for new long-term dialysis access. OPERATION PERFORMED: Creation of a right upper extremity brachial artery to basilic vein Rajwinder type arteriovenous fistula with plans for a second stage by returned to the operating room in 2-3 weeks for creation of a translocated basilic vein fistula. SURGEON: Linda Miller MD ANESTHESIA: Regional nerve block plus general per HOT METAL CRANE OPERATOR. PREOPERATIVE NOTE: Ms. Cage is a very nice 49-year-old white female patient from [place]. She has end-stage renal disease and is on chronic hemodialysis. She is not considered a transplant candidate due to severe heart disease and coronary atherosclerosis. She has had several dialysis accesses in the left arm. Most recently, she had an AV graft which became infected and had to be removed and she has been dialyzing now for a while with a right internal jugular tunneled HemoSplit dialysis catheter. She is brought to the operating room today to create a fistula or if necessary implant a graft in the right upper extremity. Under regional nerve block and additionally MAC anesthesia per HOT METAL CRANE OPERATOR, the patient in supine position was prepped and draped in a sterile manner. I examined her with ultrasound and identified an adequate median cubital vein and adequate drainage via both the cephalic and basilic veins to allow creation of a primary fistula. The cephalic vein was somewhat smaller and the cephalic vein was rather deep in adipose tissue and I felt that whether we did a basilic fistula or cephalic fistula, she would likely requires a revision or reoperation and so I elected to go with the basilic vein as it was larger. I made a transverse incision and exposed the brachial artery and the median cubital vein and the branches draining to the cephalic and basilic veins. The vein was ligated distally. The deep branch was exposed and ligated as distally as possible and then that vein was divided and bevelled. The vein, both cephalic and basilic were flushed with heparinized saline and distended with some hydrostatic pressure for dilatation. The veins were also treated with topical papaverine and occluded with atraumatic vascular clamps. The artery was doubly looped with Silastic tapes and occluded. A small arteriotomy was made and the artery was flushed proximally and distally with heparinized saline and an end-to-side, end of vein to side of artery anastomosis was completed with running 7-0 Prolene, and when completed, the occluding loops and clamps were released, excellent flow developed immediately within the new fistula. I examined her with ultrasound and Doppler and color flow with flow directed to the basilic vein and to the cephalic vein and clearly the basilic vein was the better choice. The vein branch then draining to the cephalic vein was doubly ligated and divided. This OPERATIVE REPORT [id number] BRODIE CAGE channelled all of the flow in the fistula to the basilic. The wound was then irrigated with Ancef/gentamicin solution and then closed with interrupted inverted 3-0 Vicryl and running intracuticular 4-0 Stratafix and Dermabond glue. It was dressed with Maxorb Ag, Tegaderm, and Cavilon skin prep. At that point, the patient was awakened and taken to the recovery room in stable condition. Blood loss during the operation was none. Sponges, instruments, and needles were accounted for. No drain was used and no surgical specimen was submitted for histopathology. PLAN: The patient will return to see me in my office probably week after next and until then she is to leave the initial operative dressing dry and intact. I will remove it when she sees me in the office. We will plan if all goes as expected for her to be returned to the operating room in 2 more likely 3 weeks again as an outpatient for revision by translocation of the basilic vein. TRANSINT:[id number] Voice Confirmation ID: [id number] DOCUMENT ID: [id number] cc: [facility] LINDA MILLER MD at 1447 CC: CARLOS GONZALEZ [id number] DICTATION DATE: 09/10/20 1336 S3B MULTI SENSOR OPERATOR: 09/10/208 [facility] 09/10/20 [facility] [address] [id number]
== END 2020-09-10 12:50 | disposition home or self-care (01) ==
LOC: D.OPS 06:32
PROVIDERS: Surgery; ATTEND Internal Medicine Nephrology
DX: N18.6 End stage renal disease (principal); Z99.2 Dependence on renal dialysis